=== PATIENT | female | born 1950 | race Caucasian/White ===

== ENCOUNTER → 2020-02-09 13:58 | Outpatient (CLI) | payer MEDICARE, SELFPAY ==
--- NOTE | ~2020-02-09 | CT_ITS ---
EXAMINATION: CT abdomen pelvis w con DATE: 02/09/2020 14:28 INDICATION: Lower abdominal pain. Irregular bowel movements. TECHNIQUE: Computed tomography (CT) of the abdomen and pelvis was performed without intravenous contr ast. The dose-length product was 620.22 mGy-cm. Automated exposure control and iterative reconstructi on technique were employed. COMPARISON: CT dated 01/10/2017 FINDINGS: Lung bases are unremarkable. Heart size is normal. No significant pleural or pericardial ef fusion. The liver, spleen, pancreas, adrenal glands and kidneys are unremarkable. Gallbladder is pres ent. Colonic diverticulosis without evidence for diverticulitis. No free air or free fluid. Mild lumb ar spondylosis. There is atherosclerosis. No lymphadenopathy. IMPRESSION: 1. No acute abdominal abnormality. Reviewed, dictated and finalized at location A. NG ANALYST
[2020-02-09 14:15] LABS: Estimated Glomerular Filt Rate > 60
== END ==
PROVIDERS: PCP Family Medicine; Visit Provider Physician Assistant
DX: R10.9 Unspecified abdominal pain (principal)
CPT/HCPCS: 74177; Q9967

== ENCOUNTER → 2020-07-29 01:34 | Outpatient (CLI) | payer MEDICARE, SELFPAY ==
[2020-07-29 19:38] LABS: SARS-CoV-2 RNA PCR Negative
== END ==
PROVIDERS: PCP Family Medicine; Visit Provider Internal Medicine Gastroenterology
DX: Z01.812 Encounter for preprocedural laboratory examination (principal); Z20.822 Contact with and (suspected) exposure to COVID-19
CPT/HCPCS: C9803; U0003; U0005

== ENCOUNTER 2020-08-01 00:56 | Day surgery (SDC) | payer MEDICARE, SELFPAY ==
[2020-07-21 13:30] VITALS: BMI 26.9
[2020-08-01 09:25] VITALS: BP 112/60; PULSE 71; RESP 20; TEMP 36.4; O2SAT 97; BMI 25.7
[2020-08-01] MEDS: LACTATED RINGERS 1,000 ML 150 ML IV CONT (09:47)
--- NOTE | 2020-08-01 10:20 | WPDHPUPDATE1 ---
History and Physical Update Update Date/Time: 08/01/20 10:20 History and Physical has been reviewed, including an updated exam of the patient. There are NO changes in the patient's condition. Risks, benefits, and alternatives have been discussed and questions answered. Patient agrees to proceed with procedure.
--- NOTE | 2020-08-01 10:23 | WPDANESEPPF ---
Anes - Initial Pre Proc Eval Procedure: Operation Date: 08/01/20 10:30 Proposed Procedures p Colonoscopy - Roc Gould MD Date/Time: 08/01/20 10:23 Surgeon: Roc Gould MD Pre Op Diagnosis: Rectal pain, abdominal pain Patient Data Age: 69 Gender: F Height: 5 ft 7 in Weight: 74.7 kg Last Vital Signs Temp 97.6 F 08/01/20 09:25 Pulse 71 08/01/20 09:25 Resp 20 08/01/20 09:25 BP 112/60 08/01/20 09:25 Pulse Ox 97 08/01/20 09:25 Allergies Allergy/AdvReac Type Severity Reaction Status Date / Time Sulfa (Sulfonamide Allergy Severe Swelling Verified 08/01/20 09:24 Antibiotics) Penicillins Allergy Mild Hives / Verified 08/01/20 09:24 Red Face Home Medications Medication Instructions Recorded Confirmed Type anastrozole 1 mg tablet 1 mg PO DAILY 02/22/19 07/21/20 History escitalopram oxalate 20 mg tablet 30 mg PO DAILY #135 tablet 05/26/20 07/21/20 Rx zolpidem 10 mg tablet 10 mg PO HS PRN tablet 06/14/20 07/21/20 History sodium,potassium,mag sulfates 17.5 See Rx Instructions PO .COMPLEX 07/19/20 Rx gram-3.13 gram-1.6 gram oral soln #354 ml naproxen sodium [Aleve] 220 mg PO PRN PRN 07/21/20 07/21/20 History Patient hx anesthesia problems: none Family hx anesthesia problems: none PMFSH Past Medical History Medical History Breast cancer Depression H/O benign essential tremor Family History Family History Sibling Acute myocardial infarction Social History Social History Smoking status: Never smoker Alcohol intake: current Substance use: never Living arrangements: with family Gender identity (if verbalized by the patient): Female Spiritual care concerns: No Anes - Eval Final PreProcedure Day of Procedure 08/01/20 10:23 Patient weight: normal Heart: regular rate and rhythm Lungs: clear to auscultation Airway: Mallampati scale class II Neurological: alert and oriented ASA classification: III Emergent: no Anesthetic plan: proceed Anesthesia type and monitoring: general GIVS and standard monitoring Informed Consent: The patient's anesthetic plan and its attendant risks and benefits were discussed with the patient/family/POA. Questions were solicited and answers provided to the satisfaction of the patient/family/POA.
[2020-08-01 10:45] VITALS: BP 88/45; PULSE 60; RESP 15; O2SAT 97
[2020-08-01 10:55] VITALS: BP 88/49; PULSE 60; RESP 26; O2SAT 100
[2020-08-01 11:05] VITALS: BP 93/41; PULSE 65; RESP 21; O2SAT 100
== END 2020-08-01 11:22 | disposition home or self-care (01) ==
PROVIDERS: PCP Family Medicine; Visit Provider Internal Medicine Gastroenterology
PROC: 0DJD8ZZ Inspection of Lower Intestinal Tract, Via Natural or Artificial Opening Endoscopic (ICD-10-PCS; CPT 45378; principal; 2020-08-01 10:30)
DX: R14.3 Flatulence (principal); K57.30 Diverticulosis of large intestine without perforation or abscess without bleeding; K62.89 Other specified diseases of anus and rectum; K64.8 Other hemorrhoids; Z85.3 Personal history of malignant neoplasm of breast; F32.9 Major depressive disorder, single episode, unspecified; R25.1 Tremor, unspecified; R10.9 Unspecified abdominal pain
CPT/HCPCS: 45378; C9803; J2704; J7120; U0003; U0005

== ENCOUNTER 2023-06-24 16:50 | Inpatient (IN) | payer MEDICARE, SELFPAY ==
[2023-06-24] VITALS (17 sets, daily range): BP systolic 91–122; BP diastolic 50–96; PULSE 53–90; RESP 16–25; TEMP 35.8–36.4; O2SAT 94–100; BMI 27.3
--- NOTE | ~2023-06-24 | XR_ITS ---
EXAMINATION: XR chest 1V portable Exam Date/Time: 06/24/2023 17:15 CDT HISTORY: post ROSC Comparison: None. RESULT: Lines, tubes, and devices: None. Lungs and pleura: Clear. Cardiomediastinal silhouette: Unremarkable. Other: No acute osseous or upper abdominal finding. IMPRESSION: No acute cardiopulmonary process. Reviewed, dictated and finalized at location K.
--- NOTE | 2023-06-24 16:58 | ECG_ITS ---
SEE SCANNED COPY FOR CONFIRMED REPORT MTDD
[2023-06-24] MEDS: AMIODARONE 150 MG/D5W 100 ML 150 MG/100 ML BAG 600 MG IV CONT (17:05)
--- NOTE | 2023-06-24 17:05 | PC.NURSE ---
Amiodarone continued, EMS initiated in field.
--- NOTE | 2023-06-24 17:08 | PC.NURSE ---
BS 188
[2023-06-24] MEDS: ONDANSETRON INJ 4 MG/2 ML VIAL IV PUSH (17:12)
--- NOTE | 2023-06-24 17:20 | ED.CPR ---
HPI - CPR General Chief Complaint: Cardiac Arrest/CPR Stated Complaint: post ROSC Time Seen by Provider: 06/24/23 16:57 Source: patient, family and EMS Mode of arrival: EMS Limitations: no limitations History of Present Illness HPI narrative: Patient presents via EMS. EMS had called and notified that they were en route with a patient with sinus bradycardia in the 30s that became junctional. They then updated report that patient had gone into cardiac arrest. Upon arrival to ED, patient is alert and oriented. They note that upon their arrival for a call for left shoulder pain, patient was pale and diaphoretic in the 40s and 50s and then in the 30s. She receive a 30mcg push dose of epinephrine. Upon cardiac arrest, chest compressions started and patient got 2 more doses of epinephrine. She had VFib and received 1 shock for this. She got amiodarone infusion and got ROSC. Upon arrival, alert and oriented though complaining of nausea and persistent shoulder pain. No history of hypertension or cholesterol. Related Data Home Medications Medication Instructions Recorded Confirmed omeprazole magnesium 20 mg 20 mg PO DAILY 03/05/21 06/24/23 tablet,delayed release (Prilosec OTC) tamoxifen 10 mg tablet 20 mg PO DAILY 11/06/22 06/24/23 ergocalciferol (vitamin D2) 1,250 1,250 mcg PO WEEKLY 05/07/23 06/24/23 mcg (50,000 unit) capsule desvenlafaxine succinate 75 mg PO DAILY 06/24/23 06/24/23 Allergies Allergy/AdvReac Type Severity Reaction Status Date / Time Sulfa (Sulfonamide Allergy Severe Swelling Verified 06/24/23 16:56 Antibiotics) Penicillins Allergy Mild Hives / Verified 06/24/23 16:56 Red Face PMFSH Past Medical History Medical History (Updated 06/24/23 @ 19:26 by Samantha Lang MD) Breast cancer Depression H/O benign essential tremor Family History Family History (Updated 06/24/23 @ 20:25 by Ibrahima Alonso RN) Sibling Acute myocardial infarction Father Alcoholism Mother Acute myocardial infarction Social History Social History Smoking status: Never smoker Alcohol intake: current Substance use: former Substance use type: does not use Do You Feel Safe in your Home?: Yes Lack of Transportation: No Lack of Food: Never True Current Housing: I Have Housing Concerned About Future Housing: No Difficulty Paying Gas/Electric Bills: No Difficulty Paying for Meds: No Currently Unemployed: No Education: Master's Degree or Higher Difficulty w/ Childcare or Family Care: No Living arrangements: with family Occupation/Education: retired Gender identity (if verbalized by the patient): Female Spiritual care concerns: Yes Exam Narrative: GENERAL: well-nourished, and in acute distress. HEAD: Normocephalic, atraumatic. EYES: Non injected, non icteric ENT: Nares clear, no rhinorrhea or epistaxis. NECK: Supple. CHEST: Speaking in full sentences. No respiratory distress. HEART: Regular rate and rhythm. ABDOMEN: Soft, nondistended.Emesis on shirt. EXTREMITIES: Normal range of motion. No edema. SKIN: Pale, mildly diaphoretic, no rash. NEURO: No focal deficits. Alert and oriented x3. PSYCH: Normal mood and affect. Course Vital Signs Vital signs: Vital Signs Temperature 96.5 F L 06/24/23 16:46 Pulse Rate 78 06/24/23 16:46 Respiratory Rate 19 06/24/23 16:46 Blood Pressure 103/67 06/24/23 16:46 Pulse Oximetry 100 06/24/23 16:46 Oxygen Delivery Room Air 06/24/23 16:46 Temperature 97.8 F 06/26/23 12:00 Pulse Rate 101 H 06/26/23 12:00 Respiratory Rate 19 06/26/23 12:00 Blood Pressure 113/91 H 06/26/23 12:00 Pulse Oximetry 100 06/26/23 12:00 Oxygen Delivery Room Air 06/26/23 12:00 MDM - Cardiac Arrest/CPR MDM Narrative Medical decision making narrative: Patient presents with report of acute left shoulder pain starting 2 hours before calling
--- NOTE | 2023-06-24 17:21 | ECG_ITS ---
SEE SCANNED COPY FOR CONFIRMED REPORT MTDD
[2023-06-24 17:23] LABS: Basophils Absolute Auto 0.1 K/mm3 (0.0-0.1); Basophils Percent Auto 0.7 % (0.2-1.2); Eosinophils Percent Auto 0.3 % (0-4.4); Hematocrit 35.6 % (37.0-47.0); Hemoglobin 12.3 g/dL (12.0-15.0); Immature Granulocyte Absolute 0.04 K/mm3 (0.00-0.031); Immature Granulocyte Percent A 0.3 % (0-0.5); Lymphocytes Absolute Auto 1.65 K/mm3 (0.9-3.2); Lymphocytes Percent Auto 14.4 % (18.3-44.2); Mean Corpuscular HGB Conc 34.6 g/dl (32-36); Mean Corpuscular Hemoglobin 31.6 pg (26-34); Mean Corpuscular Volume 91.5 fl (80-100); Mean Platelet Volume 8.6 fl (7.4-10.4); Monocytes Absolute Auto 0.7 K/mm3 (0.1-0.6); Monocytes Percent Auto 6.2 % (2.6-8.5); Neutrophils Absolute Auto 8.9 K/mm3 (1.3-6.7); Neutrophils Percent Auto 78.1 % (45.5-73.1); Platelet Count Result 206 k/mm3 (150-375); Red Blood Count 3.89 M/mm3 (4.2-5.4); Red Cell Distribution Width 14.3 % (11.5-14.5); White Blood Count 11.5 K/mm3 (4.5-10.0)
[2023-06-24] MEDS: MORPHINE SULFATE (*CRX) 2 MG/ML INJ 4 MG IV PUSH (17:25)
--- NOTE | 2023-06-24 17:27 | PCCCNOTE ---
Met with spouse and son in family room. ER provider explained to them what happened and that the plan is for a card cath to be performed this evening. They both voiced understanding and met with pt prior to being shown to the ICU waiting room. ICU staff informed family is in the waiting room to be informed of results of procedure and to see pt after. Family was informed of location of the cafeteria and vending machines.
[2023-06-24] MEDS: ASPIRIN 81 MG CHEWABLE TABLET 324 MG PO (17:32)
[2023-06-24] MEDS: SODIUM CHLORIDE 0.9% IV 1,000 ML 999 ML IV CONT (17:32)
[2023-06-24 17:33] LABS: Prothrombin Time 13.4 Seconds (11.1-14.7)
[2023-06-24] MEDS: HEPARIN SODIUM 5,000 UNITS/ML VIAL 4000 UNITS IV PUSH (17:33)
[2023-06-24 17:34] LABS: Partial Thromboplastin Time 21.1 Seconds (22.3-36.8)
--- NOTE | 2023-06-24 17:43 | PC.NURSE ---
1705 STEMI O/H 1706 DOUGIE SENT 1706 INTERVENTIONAL CARDIO NOTIFIED 1707 MILADY CALLED FOR STANDBY
[2023-06-24 18:00] LABS: Alanine Aminotransferase 22 U/L (6-35); Albumin Level 3.4 g/dL (3.5-5.1); Alkaline Phosphatase 112 U/L (38-126); Anion Gap 9 mmol/L (4-12); Aspartate Amino Transferase 33 U/L (14-36); Bilirubin,Total 0.4 mg/dL (0.2-1.3); Blood Urea Nitrogen 13 mg/dL (7-17); Calcium 7.9 mg/dL (8.4-10.2); Carbon Dioxide 17 mmol/L (22-30); Chloride 107 mmol/L (98-107); Cholesterol 201 mg/dL (0-200); Estimated CRCL calculation 75 ml/min; Estimated Glomerular Filt Rate > 60; Glucose 282 mg/dL (65-110); HDL Direct 67 mg/dL; Potassium 2.9 mmol/L (3.4-5.0); Sodium 133 mmol/L (137-145); Triglycerides 154 mg/dL (<150)
[2023-06-24 18:10] LABS: LDL Cholesterol Direct 126 mg/dL
[2023-06-24 18:24] LABS: Troponin I 0.258 ng/mL (0.000-0.034)
--- NOTE | 2023-06-24 19:03 | ECG_ITS ---
SEE SCANNED COPY FOR CONFIRMED REPORT. MTDD
--- NOTE | 2023-06-24 19:11 | WPDHPUPDATE1 ---
History and Physical Update Update Date/Time: 06/24/23 19:11 History and Physical has been reviewed, including an updated exam of the patient. There are NO changes in the patient's condition. Risks, benefits, and alternatives have been discussed and questions answered. Patient agrees to proceed with procedure.
--- NOTE | 2023-06-24 19:11 | PM.IMHP ---
H&P: HPI History of Present Illness Date/Time: 06/24/23 19:11 Chief Complaint: Left shoulder pain Narrative: this 72-year-old patient with past medical history of left breast cancer 8 years ago status post radiation but no chemo who presents to the hospital with left shoulder pain. Associated with nausea, vomiting. She felt sick and sweaty. Called EMS and apparently went into cardiac arrest. She developed bradycardia and then had to be shocked. She regained consciousness. On arrival to ED EKG shows ST depression in V1 to V3 consistent with posterior MD. she keeps having episodes of bradycardia. Review of Systems Review of Systems: All systems reviewed & are unremarkable except as noted in HPI and below Constitutional: Constitutional: Denies chills, Reports fatigue, Denies fever(s), Denies headache(s) and Denies snoring Comments: sweating Eyes: Eyes: Denies eye discharge and Denies loss of vision ENT: Denies dizziness, Denies headache(s), Denies nasal discharge and Denies sore throat Cardiovascular: Cardiovascular: Reports as per HPI, Denies chest pain, Denies syncope, Denies rapid heart rate, Denies leg edema, Denies dyspnea, Denies dyspnea on exertion, Denies orthopnea and Denies paroxysmal nocturnal dyspnea Respiratory: Respiratory: Denies chest congestion, Denies cough, Denies dyspnea, Denies dyspnea on exertion, Denies snoring and Denies wheezing Gastrointestinal: Gastrointestinal: Denies abdominal pain, Denies diarrhea, Reports nausea and Reports vomiting Genitourinary: Genitourinary: Denies hematuria, Denies urinary frequency, Denies dysuria and Denies flank pain Musculoskeletal: Musculoskeletal: Denies myalgias, Denies arthralgias and Denies joint swelling Comments: Left shoulder pain Neurologic: Denies Abnormal speech present, Denies dizziness, Denies syncope, Denies headache(s), Denies focal weakness and Denies loss of vision Psychiatric: Psychiatric: Denies anxiety and Denies depression Endocrine: Endocrine: Denies cold intolerance, Denies fatigue and Denies heat intolerance Hematologic/Lymphatic: Hematologic/Lymphatic: Denies easy bleeding and Denies easy bruising Allergic/Immunologic: Allergic/Immunologic: Denies urticaria and Denies wheezing PMFSH Past Medical History Medical History (Updated 06/24/23 @ 19:14 by Samantha Lang MD) Breast cancer Depression H/O benign essential tremor Family History Family History Sibling Acute myocardial infarction Social History Social History Smoking status: Never smoker Alcohol intake: current Substance use: never Lack of Transportation: No Lack of Food: Never True Current Housing: I Have Housing Concerned About Future Housing: No Difficulty Paying Gas/Electric Bills: No Difficulty Paying for Meds: No Currently Unemployed: No Education: Master's Degree or Higher Difficulty w/ Childcare or Family Care: No Living arrangements: with family Occupation/Education: retired Gender identity (if verbalized by the patient): Female Spiritual care concerns: No Meds Home Medications and Allergies Home Medications Medication Instructions Recorded Confirmed Type naproxen sodium 220 mg capsule 220 mg PO PRN PRN Pain 07/21/20 06/24/23 History (Aleve) omeprazole magnesium 20 mg 20 mg PO DAILY 03/05/21 06/24/23 History tablet,delayed release (Prilosec OTC) tamoxifen 10 mg tablet 20 mg PO DAILY 11/06/22 06/24/23 History ergocalciferol (vitamin D2) 1,250 1,250 mcg PO WEEKLY 05/07/23 06/24/23 History mcg (50,000 unit) capsule desvenlafaxine succinate 75 mg PO DAILY 06/24/23 06/24/23 History propranolol 40 mg tablet 40 mg PO Q12H 06/24/23 06/24/23 History zolpidem 10 mg tablet 15 mg PO QHS PRN insomnia #45 tabs 06/24/23 06/24/23 Rx Allergies Allergy/AdvReac Type Severity Reacti
--- NOTE | 2023-06-24 19:16 | WPDCARDPROC ---
Cardiac Cath Procedure Note Date of procedure:: 06/24/23 Performing physician:: Samantha Lang MD date of service June 24, 2023 Indication:: posterior STEMI Brief clinical history:: this 72-year-old patient with? past medical history of left breast cancer 8 years ago status post radiation but no chemo who presents to the hospital with left shoulder pain.? Associated with nausea, vomiting.? She felt sick and sweaty.? Called EMS and apparently went into cardiac arrest.? She developed bradycardia and then had to be shocked.? She regained consciousness.? On arrival to ED EKG shows ST depression in? V1 to V3 consistent with posterior AL. ?she keeps having episodes of bradycardia. Procedure Procedure performed:: 2-Selective left and right coronary angiogram. 3-Left heart catheterization with measurement of LVEDP and measurement of gradient across aortic valve. 4-Right common femoral arterial angiogram. 5- Penumbra thrombectomy of the left circumflex artery. 6- deployment of a drug-eluting stent orsiro 3x15 covering mid left circumflex artery. Proximal portion of the stent was dilated using 3.5 noncompliant balloon. 7- insertion of temporary transvenous pacemaker. 8- intravascular ultrasound of the left circumflex artery. Sedation/Medication given:: Moderate sedation. Access site:: Right common femoral artery. Estimated blood loss:: 10cc Procedure note:: After informed consent patient was brought in to [facility] with the was draped and prepped in usual manner. Moderate sedation was given and the right groin was infiltrated using 1% lidocaine. six Slovenian sheath was obtained using micropuncture needle and the modified Seldinger technique. Selective left coronary angiogram was done using JL4 catheter with the tip of the catheter placed in the left main coronary artery. Selective right coronary angiogram was done using JR4 catheter with the tip of the catheter placed to the right coronary artery. after that 6 Slovenian guide catheter CLS 3.5 was advanced and engaged the left main coronary artery. Coronary luge wire was advanced to the distal left circumflex artery. Penumbra thrombectomy catheter was used to retrieve the clot. After that we used 3 x 10 balloon and inflated it under normal pressure for 25 seconds. then after that we used intravascular ultrasound to measure the artery. Under deployed drug-eluting stent orsiro 3 x 15 covering mid left circumflex artery under nominal pressure for 30 seconds and then post dilated the proximal portion using 3.5 noncompliant balloon. After that 5 Slovenian pigtail catheter was advanced across the aortic valve into the left ventricle with measurement of LVEDP and measurement of gradient across aortic valve. Right common femoral arterial angiogram was done. 6 Slovenian right femoral vein was obtained using micropuncture needle modified Seldinger technique. Then temporary transvenous Pacemaker was advanced to the left ventricle was placed. Findings:: 1- left coronary artery is a large artery that divides into large LAD, large circumflex artery. Left main is Free of disease 2- left anterior descending artery is a large artery that runs and wraps around the apex. minimal irregularities. Proximal was ostial large diagonal branch that has ostial 20%. 3- leftcircumflex artery is a large artery Artery And codominant and in the mid segment there is ruptured a plaque with blood clot sitting. The blood clot also is in the ostial and proximal portion of a large OM1 that comes off just distal to the ruptured plaque. TRINA flow in the OM1 is 1 with clot distally. 4- right coronary artery is medium in caliber and codominant. No disease. 5- LVEDP was 13 mm Hg and no gradient across aortic valve. 6- opening arterial pressure was 88/47 and closing pressure was 105/34 7- right femoral artery angiogram shows no significant disease in the right common femoral artery. sheath entered the bifurcation 8- intravascular
[2023-06-24] MEDS: SODIUM CHLORIDE 0.9% IV 1,000 ML 125 ML IV CONT (21:01)
[2023-06-24 21:24] LABS: Anion Gap 8 mmol/L (4-12); Blood Urea Nitrogen 13 mg/dL (7-17); Calcium 7.8 mg/dL (8.4-10.2); Carbon Dioxide 18 mmol/L (22-30); Chloride 112 mmol/L (98-107); Estimated CRCL calculation 87 ml/min; Estimated Glomerular Filt Rate > 60; Glucose 205 mg/dL (65-110); Magnesium 1.7 mg/dL (1.6-2.3); Phosphorus 2.8 mg/dL (2.5-4.5); Potassium 3.1 mmol/L (3.4-5.0); Sodium 138 mmol/L (137-145)
[2023-06-24 21:37] LABS: Partial Thromboplastin Time 93.2 Seconds (22.3-36.8)
[2023-06-24] MEDS: MAGNESIUM SULF 2 GM/WATER 50ML 2 GM/50 ML BAG IVPB (22:47)
[2023-06-24] MEDS: POTASSIUM CHLORIDE INJ 40 MEQ in SODIUM CHLORIDE 0.9% IV 500 ML 130 MEQ IVPB (22:47)
[2023-06-25] VITALS (25 sets, daily range): BP systolic 93–127; BP diastolic 48–98; PULSE 62–108; RESP 13–21; TEMP 36.5–37.8; O2SAT 98–100
[2023-06-25] MEDS: ZOLPIDEM TARTRATE (*CRX) 5 MG TABLET 15 MG PO ×2 (01:01→20:29)
[2023-06-25 04:14] LABS: Hemoglobin 9.8 g/dL (12.0-15.0); Mean Corpuscular HGB Conc 33.8 g/dl (32-36); Mean Corpuscular Hemoglobin 31.6 pg (26-34); Mean Corpuscular Volume 93.5 fl (80-100); Mean Platelet Volume 8.8 fl (7.4-10.4); Platelet Count Result 163 k/mm3 (150-375); Red Cell Distribution Width 14.6 % (11.5-14.5)
[2023-06-25 04:26] LABS: Anion Gap 5 mmol/L (4-12); Blood Urea Nitrogen 14 mg/dL (7-17); Calcium 7.7 mg/dL (8.4-10.2); Carbon Dioxide 18 mmol/L (22-30); Chloride 115 mmol/L (98-107); Estimated CRCL calculation 78 ml/min; Estimated Glomerular Filt Rate > 60; Glucose 144 mg/dL (65-110); Potassium 4.7 mmol/L (3.4-5.0); Sodium 138 mmol/L (137-145)
[2023-06-25 04:35] LABS: Magnesium 2.4 mg/dL (1.6-2.3)
[2023-06-25] MEDS: ASPIRIN 81 MG CHEWABLE TABLET PO (08:02)
[2023-06-25] MEDS: TICAGRELOR 90 MG TABLET PO ×2 (08:02→20:28)
--- NOTE | 2023-06-25 09:10 | PM.PNCARD ---
Progress Note: A&P Assessment and Plan (1) STEMI (ST elevation myocardial infarction): Code(s): I21.3 - ST elevation (STEMI) myocardial infarction of unspecified site Status: Acute (2) Cardiac arrest: Code(s): I46.9 - Cardiac arrest, cause unspecified Status: Acute Plan 72-year-old lady with newly diagnosed coronary disease presenting with acute posterior infarction last evening. Underwent emergency PCI with thrombectomy and stenting of the circumflex. She has recovering satisfactorily overnight. Not requiring any pacing. Temporary transvenous pacemaker was removed at the bedside. Manual pressure for several minutes with the venous sheath there is no hematoma. We will initiate guideline directed medical therapy with statin, beta-moni and ARB at this time. Importance of strict adherence to dual anti-platelet therapy was discussed and stressed with the patient this morning. After her bed rest is completed she can moved to [facility] Micah Pabon MD [facility] Subjective Date/time seen: Date of service: 06/25/23 09:10 Interval history: Follow-up visit in this 72-year-old lady with: Newly diagnosed coronary artery disease presenting last night with acute posterior myocardial infarction complicated by VFib arrest in the emergency department. Patient underwent emergency thrombectomy and stenting of the circumflex with good anatomic result. Temporary pacemaker implanted following the procedure. She has intrinsic sinus rhythm in the 80s is not done any pacing through the night. Patient is in good spirits this morning and feels well. Exam Const: General: comfortable and no acute distress Other: Very pleasant well-developed well-nourished white female no distress of any kind still at bedrest with venous sheath in the right groin HENMT: Mouth: Yes moist mucous membranes Eyes: Sclera: sclerae normal Neck: Neck: supple and no JVD Resp: Effort & Inspection: normal respiratory effort Auscultation: clear to auscultation bilaterally Cardio: Rate: regular rate Rhythm: regular rhythm Other: No audible murmur or gallop GI: GI Palp: Yes Soft to palpation Auscultation: normal bowel sounds Urinary Catheter: Urinary Catheter: patent and draining Skin: General skin exam: normal color Neuro: Other: Alert and oriented x3 Extrem: Other: No edema, good distal pulses, no right groin hematoma. Objective Data Vital Signs Vital Signs: Vital Signs - 24 hr 06/24/23 16:46 06/24/23 17:05 06/24/23 17:08 Temperature 35.8 C L Pulse Rate 78 65 66 Pulse Rate [Right Pedal (Dorsalis Pedis) Palpation] Respiratory Rate 19 25 H Blood Pressure 103/67 103/67 103/67 Pulse Oximetry 100 100 Oxygen Delivery Room Air 06/24/23 17:09 06/24/23 17:13 06/24/23 17:14 Temperature Pulse Rate 65 67 Pulse Rate [Right Pedal (Dorsalis Pedis) Palpation] Respiratory Rate Blood Pressure 103/67 Pulse Oximetry 100 Oxygen Delivery Room Air 06/24/23 17:26 06/24/23 17:34 06/24/23 19:33 Temperature 36.4 C Pulse Rate 79 53 L 90 Pulse Rate [Right Pedal (Dorsalis Pedis) Palpation] Respiratory Rate 20 20 18 Blood Pressure 103/61 93/50 L 122/96 H Pulse Oximetry 97 98 100 Oxygen Delivery 06/24/23 19:33 06/24/23 19:48 06/24/23 20:00 Temperature 36.4 C Pulse Rate 53 L 88 88 Pulse Rate [Right Pedal (Dorsalis Pedis) Palpation] Respiratory Rate 20 Blood Pressure 93/50 L 91/55 L Pulse Oximetry 100 Oxygen Delivery 06/24/23 20:00 06/24/23 20:01 06/24/23 20:16 Temperature 36.4 C Pulse Rate 88 88 82 Pulse Rate [Right Pedal (Dorsalis Pedis) Palpation] Respiratory Rate 20 20 18 Blood Pressure 91/55 L Pulse Oximetry 100 100 100 Oxygen Delivery Room Air 06/24/23 20:46 06/24/23 21:00 06/24/23 22:00 Temperature Pulse Rate 84 90 77 Pulse Rate [Right Pedal (Dorsalis Pedis) Palpation] Respiratory Rate 24 H 18 16 Blood Pressure 98/
--- NOTE | 2023-06-25 09:23 | WPDCNINT ---
Assessment and Plan Assessment and plan (1) STEMI (ST elevation myocardial infarction): Code(s): I21.3 - ST elevation (STEMI) myocardial infarction of unspecified site Status: Acute Assessment and Plan: Patient presented the ED with diffuse old patient a nausea, vomiting diaphoresis. Had a brief cardiac arrest requiring defibrillation x1 in the field with return to consciousness. Patient was brought to the ED where she was found to have an acute posterior DC with bradycardic episodes. Patient was taken the photographic laboratory supervisor status post PTCA/PCI with CRISTINO x1 to mid left circumflex artery. LVEDP was 30 mmHg -patient was bradycardic during the case. Temporary pacemaker was inserted by Cardiology. At the end of the case the bradycardia had resolved -overnight patient did not require assistance of the temporary pacemaker, deferred was removed by Cardiology this morning on 06/25/2023. -patient started on aspirin, Brilinta, rosuvastatin, losartan and metoprolol -cardiology following the patient (2) Cardiac arrest: Code(s): I46.9 - Cardiac arrest, cause unspecified Status: Acute Assessment and Plan: Brief cardiac arrest likely related to ST-elevation DC/bradycardia, patient was shocked x1 with return of Puja consciousness. -arrhythmias noted overnight (3) Bradycardia: Code(s): R00.1 - Bradycardia, unspecified Status: Acute Assessment and Plan: As above Plan DVT prophylaxis: Status post cardiac catheterization Stress ulcer prophylaxis: Not indicated Nutrition: Heart healthy diet Code Status: Full code Critical Care Time Spent: 45 minutes Discussed with Cardiology, temporary pacemaker wires were removed patient will be transferred to intermediate Unit per Cardiology Due to a high probability of clinically significant, life threatening deterioration, the patient required my highest level of preparedness to intervene emergently and I personally spent this critical care time directly and personally managing the patient. This critical care time included obtaining a history; examining the patient; pulse oximetry; ordering and review of studies; arranging urgent treatment with development of a management plan; evaluation of patient's response to treatment; frequent reassessment; and discussions with other providers. It was exclusive of separately billable procedures and treating other patients and teaching time. Please see Assessment and Plan section and the rest of the note for further information on patient assessment and treatment This dictation may have been done utilizing a voice recognition system. Attempts have been made to correct errors. However, there may be uncorrected grammatical, spelling, and recognitions errors present. Creative Designer Consult Note Consult date: 06/25/23 Reason for consult: Cardiac arrest, STEMI, bradycardia HPI: Debi Breen is a 72 year old female with past medical history of left breast cancer 8 years ago status post radiation but no chemo, presented the ED on 06/24/2023 in the evening after she complained of left shoulder pain associated with nausea, vomiting, diaphoretic and feeling sick to the stomach. Apparently with the EMS arrive she went to a cardiac arrest, patient was cardioverted due to patient being bradycardic and irregular rhythm with hemodynamic instability patient regained consciousness and was transferred to the ED at [facility], EKG showed ST depression in V1 to V3 with posterior DC, patient was taken to the cardiac photographic laboratory supervisor emergently which she was found to have complete occlusion of the mid left circumflex status post PTCA/PCI with CRISTINO x1. LVEDP was 13 mmHg. Patient was also bradycardic in the photographic laboratory supervisor which had resolved at the end of the case by the weaving inspector placed a temporary pacemaker and patient was transferred to the ICU for further management. Patient seen examined the ICU this morning, is awake, alert, oriented, nonfocal. Patient a
[2023-06-25] MEDS: LOSARTAN POTASSIUM 25 MG TABLET PO (09:31)
[2023-06-25] MEDS: ROSUVASTATIN 20 MG TABLET PO (09:31)
[2023-06-25] MEDS: ACETAMINOPHEN 325 MG TABLET 650 MG PO ×2 (09:46→20:28)
[2023-06-26] VITALS (7 sets, daily range): BP systolic 104–123; BP diastolic 53–91; PULSE 79–103; RESP 16–19; TEMP 36.4–36.6; O2SAT 98–100
--- NOTE | 2023-06-26 | ECHO_ITS ---
Patient Info Name: Debi Breen Age: 72 years : 1950 Gender: Female Ht: 66 in Wt: 171 lbs BSA: 1.92 m2 HR: 79 bpm BP: 105 / 53 mmHg Heart Rhythm: Sinus Rhythm Technical Quality: Good Exam Date: 06/26/2023 11:11 AM Exam Location: Echo Lab Patient Status: Inpatient Admit Date: 06/24/2023 Staff Ordering Physician: Kirsten Lim MD (gildardo/carmen) Cube Machine Tender: Pina Navarro RDCS Attending Provider: Samantha Lang MD Referring Physician: Raphael TURPIN; Exam Type: CA echo dop color flow w con Study Info Indications - STEMI Complete two-dimensional, color flow and Doppler transthoracic echocardiogram is performed with contrast to opacify the left ventricle and to improve the deliniation of the left ventricle endocardial borders. Contrast/Agitated Saline Contrast/Ag. Saline: Definity Amount: 2.00 ml Administered By: Pina Navarro RDCS Existing IV Access: Yes IV Access Condition: patent with no signs of infiltration Summary 1. Left ventricular chamber dimension is normal. 2. Left ventricular systolic function is normal, estimated at 50-55%. 3. There is hypokinesis of the basal and mid anterolateral wall, basal and mid anterior wall, basal and mid inferolateral wall. 4. The left ventricular diastolic function is grade I diastolic dysfunction. 5. Right ventricular systolic function is normal. 6. There is mild mitral valve regurgitation. 7. There is mild tricuspid valve regurgitation. Left Ventricle There is hypokinesis of the basal and mid anterolateral wall, basal and mid anterior wall, basal and mid inferolateral wall. Left ventricular chamber dimension is normal. Left ventricular systolic function is normal, estimated at 50-55%. There is no increased left ventricular wall thickness. The left ventricular diastolic function is grade I diastolic dysfunction. Right Ventricle Right ventricular chamber dimension is normal. Right ventricular systolic function is normal. Left Atria Left atrial chamber dimension is normal. Right Atria Right atrial chamber dimension is normal. Atrial Septum Intact interatrial septum visualized by color flow imaging. Aortic Valve The aortic valve is trileaflet. There is mild aortic valve sclerosis. There is no aortic valve stenosis. There is no aortic valve regurgitation. Pulmonic Valve The pulmonic valve is not well visualized. Mitral Valve There is mild mitral valve regurgitation. Tricuspid Valve There is mild tricuspid valve regurgitation. Pericardium/Pleural There is no pericardial effusion. Inferior Vena Cava Normal inferior vena cava with >50% collapse upon inspiration consistent with normal right atrial pressure, 3 mmHg. Aorta The aortic root size at the sinus of Valsalva is normal. Left Ventricular Outflow Tract Name Value Normal LVOT 2D LVOT Diameter 1.88 cm LVOT Doppler LVOT Peak Gradient 5 mmHg LVOT Mean Gradient 2 mmHg LVOT VTI 20.40 cm LVOT VTI/AV VTI Ratio 0.75 LVOT Stroke Volume 56.31 ml LVOT CO
[2023-06-26] MEDS: METOPROLOL SUCCINATE EXT REL 25 MG TABCR PO (08:06)
[2023-06-26] MEDS: ASPIRIN 81 MG CHEWABLE TABLET PO (08:06)
[2023-06-26] MEDS: LOSARTAN POTASSIUM 25 MG TABLET PO (08:06)
[2023-06-26] MEDS: TICAGRELOR 90 MG TABLET PO (08:07)
[2023-06-26] MEDS: ROSUVASTATIN 20 MG TABLET PO (08:07)
[2023-06-26] MEDS: ACETAMINOPHEN 325 MG TABLET 650 MG PO (08:09)
[2023-06-26] MEDS: PERFLUTREN LIPID MICROSPHERES 1.5 ML VIAL DILUTED TO 10 ML TOTAL VOLUME IV PUSH (11:18)
--- NOTE | 2023-06-26 12:31 | IVDEFINITY ---
Prior to administration of IV Definity the patient was educated on the risks and benefits of the imaging enhancing agent including potential adverse side effects. The patient verbalized understanding. Allergies were verified. No exclusion criteria were identified and at least one of the following inclusion criteria were met: 1) physician request, 2) patient technically difficult to image (per the [place] [employer]chocardi[employer] guidelines of two or more segments not discernable within the apical view), or 3) questionable left ventricular function. ?
--- NOTE | 2023-06-26 13:25 | PM.DS ---
DS: Admitting Diagnosis Discharge Date 06/26/2023 Admitting Diagnosis STEMI DS: Discharge Diagnosis Discharge Diagnosis (1) STEMI (ST elevation myocardial infarction): Code(s): I21.3 - ST elevation (STEMI) myocardial infarction of unspecified site Status: Acute (2) Cardiac arrest: Code(s): I46.9 - Cardiac arrest, cause unspecified Status: Acute DS: Summary Hospital Course Reason for hospitalization: STEMI, cardiac arrest Hospital Course: This was a 72 year old female with?past medical history of left breast cancr 8 years ago status post radiation but no chemo who presented to the hospital with left shoulder pain.? Associated with nausea, vomiting.? She felt sick and sweaty.? Called EMS and apparently went into cardiac arrest.? She developed bradycardia and then had to be shocked.? She regained consciousness.? On arrival to ED, EKG showed ST depressions in?V1 to V3 consistent with posterior [place]. She kept having episodes of bradycardia. She underwent emergent cardiac catheterization which showed: In the mid segment of LCX there is ruptured plaque with blood clot sitting.? The blood clot also is in the ostial and proximal portion of a large OM1 that comes off just distal to the ruptured plaque.? TRINA flow in the OM1 is 1 with clot distally. Underwent successful stenting of mid left circumflex artery using 3mm x 15mm drug-eluting stent and post dilatation of the proximal portion of the stent to 3.5 mm. Temporary pacer was placed due to bradycardia. Post PCI, she did not have further issues with bradycardia, and the temp pacer was removed the next morning. She will be on DAPT, and guideline directed medical therapy with beta moni, ARB, statin. Echocardiogram showed preserved LVEF. Status at Discharge Cognitive/behavioral status at discharge: Stable Functional status at discharge: independent ambulation Overall status at discharge: patient is back to baseline Time Spent with Patient Time attestation: Total time spent providing and/or coordinating discharge services: Exam Const: General: comfortable and no acute distress HENMT: Mouth: Yes moist mucous membranes Eyes: General: appearance normal, both eyes and all related structures Sclera: sclerae normal Resp: Effort & Inspection: normal respiratory effort Cardio: Rate: regular rate Rhythm: regular rhythm Skin: General skin exam: normal color Psych: Mental Status: mental status grossly normal Affect: normal affect Discharge Plan Discharge Attending physician on discharge: Kirsten Lim Consulting providers: Mainor Moy Discharging Clinician: Kirsten Lim Anticipated Discharge Date/Time: 06/26/23 13:21 Patient Disposition: Home, Self-Care Activity: june shower Diet: heart healthy Discharge Instructions: STEMI Patient Instructions: Antibiotic Form, Ticagrelor (By mouth), Heart Attack (IP), Heart Healthy Diet (DC), Cardiac Rehabilitation (DC), Coronary Intravascular Stent Placement (DC), Left Heart Catheterization (DC) Stand Alone Forms: General Discharge Information Follow-up/Referrals: Samantha Lang MD [Physician] - Discharge Medications: New aspirin 81 mg capsule 81 mg PO DAILY@0800 Qty: 90 3RF losartan 25 mg Tablet 25 mg PO DAILY Qty: 90 3RF metoprolol succinate [Toprol XL] 25 mg Tablet Extended Release 24 Hr 25 mg PO QAM Qty: 90 3RF rosuvastatin 20 mg Tablet 20 mg PO QAM Qty: 90 3RF Brilinta 90 mg Tablet 90 mg PO Q12HR Qty: 180 3RF Continued omeprazole magnesium [Prilosec OTC] 20 mg tablet,delayed release (DR/EC) 20 mg PO DAILY ergocalciferol (vitamin D2) 1,250 mcg (50,000 unit) capsule 1,250 mcg PO WEEKLY Rx Instructions: Friday tamoxifen 10 mg tablet 20 mg PO DAILY desvenlafaxine succinate 75 mg PO DAILY zolpidem 10 mg tablet 15 mg PO QHS PRN (Reason: insomnia) Qty: 45 5RF Date of admission: 06/24/23 17:05
== END 2023-06-26 14:18 | disposition home or self-care (01) | DRG 321 ==
LOC: ANHED 17:00 → ANHICU 17:10
PROVIDERS: Internal Medicine; Admitting Provider Internal Medicine Cardiovascular Disease; Emergency Provider Student in an Organized Health Care Education/Training Program; PCP Family Medicine; Visit Provider Internal Medicine
PROC: 4A023N7 Measurement of Cardiac Sampling and Pressure, Left Heart, Percutaneous Approach (ICD-10-PCS; CPT 93452; principal; 2023-06-24 17:30)
PROC: 027034Z Dilation of Coronary Artery, One Artery with Drug-eluting Intraluminal Device, Percutaneous Approach (ICD-10-PCS; 2023-06-24 17:30)
PROC: 027034Z Dilation of Coronary Artery, One Artery with Drug-eluting Intraluminal Device, Percutaneous Approach (ICD-10-PCS; 2023-06-24 17:30)
PROC: 027034Z Dilation of Coronary Artery, One Artery with Drug-eluting Intraluminal Device, Percutaneous Approach (ICD-10-PCS; CPT 33210; 2023-06-24 17:30)
DX: I21.29 ST elevation (STEMI) myocardial infarction involving other sites (principal); I46.9 Cardiac arrest, cause unspecified; I25.10 Atherosclerotic heart disease of native coronary artery without angina pectoris; R00.1 Bradycardia, unspecified; G25.0 Essential tremor; F32.A Depression, unspecified; Z85.3 Personal history of malignant neoplasm of breast
CPT/HCPCS: 33210; 36415; 71045; 80048; 80053; 80061; 83735; 84100; 84484; 85025; 85027; 85610; 85730; 86850; 86900; 86901; 92950; 92978; 93005; 93458; 99285; A9270; C1725; C1753; C1757; C1769; C1874; C1887; C1894; C8929; C9606; J0282; J0461; J0583; J1327; J1644; J2270; J2305; J2405; J2550; J2765; J3475; J3480; J7030; J7040; Q9957

== ENCOUNTER 2023-07-22 08:56 | Outpatient (CLI) | payer MEDICARE, SELFPAY ==
[2023-07-22 11:14] LABS: Basophils Absolute Auto 0.1 K/mm3 (0.0-0.1); Basophils Percent Auto 0.9 % (0.2-1.2); Eosinophils Absolute Auto 0.1 K/mm3 (0-0.3); Eosinophils Percent Auto 2.2 % (0-4.4); Hematocrit 38.8 % (37.0-47.0); Hemoglobin 12.8 g/dL (12.0-15.0); Immature Granulocyte Absolute 0.02 K/mm3 (0.00-0.031); Immature Granulocyte Percent A 0.3 % (0-0.5); Lymphocytes Absolute Auto 1.18 K/mm3 (0.9-3.2); Lymphocytes Percent Auto 18.6 % (18.3-44.2); Mean Corpuscular Hemoglobin 31.7 pg (26-34); Monocytes Absolute Auto 0.6 K/mm3 (0.1-0.6); Monocytes Percent Auto 9.6 % (2.6-8.5); Neutrophils Absolute Auto 4.3 K/mm3 (1.3-6.7); Neutrophils Percent Auto 68.4 % (45.5-73.1); Platelet Count Result 197 k/mm3 (150-375); Red Blood Count 4.04 M/mm3 (4.2-5.4); Red Cell Distribution Width 15.4 % (11.5-14.5); White Blood Count 6.3 K/mm3 (4.5-10.0)
[2023-07-22 11:22] LABS: Alanine Aminotransferase 22 U/L (6-35); Albumin Level 3.8 g/dL (3.5-5.1); Alkaline Phosphatase 97 U/L (38-126); Anion Gap 5 mmol/L (4-12); Aspartate Amino Transferase 78 U/L (14-36); Bilirubin,Total 0.5 mg/dL (0.2-1.3); Blood Urea Nitrogen 12 mg/dL (7-17); Calcium 8.8 mg/dL (8.4-10.2); Carbon Dioxide 26 mmol/L (22-30); Chloride 107 mmol/L (98-107); Estimated Glomerular Filt Rate > 60; Glucose 109 mg/dL (65-110); Potassium 3.7 mmol/L (3.4-5.0); Sodium 138 mmol/L (137-145)
[2023-07-22 12:10] LABS: Hemoglobin A1C 4.4 % (<5.7)
== END 2023-07-22 08:57 | disposition home or self-care (01) ==
LOC: ANHGOSHLAB 08:57
PROVIDERS: PCP Family Medicine; Visit Provider Nurse Practitioner Family
DX: R00.1 Bradycardia, unspecified (principal); R73.01 Impaired fasting glucose; Z95.5 Presence of coronary angioplasty implant and graft
CPT/HCPCS: 36415; 80053; 83036; 85025

== ENCOUNTER 2023-09-13 13:07 | Emergency (ER) | payer MEDICARE, SELFPAY ==
[2023-09-13] VITALS (14 sets, daily range): BP systolic 116–142; BP diastolic 63–86; PULSE 70–93; RESP 14–22; TEMP 36.4; O2SAT 91–100
--- NOTE | ~2023-09-13 | XR_ITS ---
EXAMINATION: XR chest 2V 09/13/2023 13:35 INDICATION: Chest pain PROCEDURE: 2 view chest COMPARISON: 06/24/2023 FINDINGS: The lungs are clear. The lungs are hyperinflated which is consistent with, but not diagnost ic of chronic obstructive pulmonary disease. The cardiomediastinal silhouette is within normal limits . There are no pleural effusions. There is no pneumothorax suspected. IMPRESSION: 1: NO ACUTE CARDIOPULMONARY DISEASE. Reviewed, dictated and finalized at location B.
--- NOTE | 2023-09-13 13:07 | ECG_ITS ---
Test Date: 2023-09-13 13:13:40 Measurements Intervals Logan Rate: 82 P: 82 GA: 163 QRS: -17 QRSD: 78 T: 73 QT: 373 QTc: 436 Interpretive Statements SINUS RHYTHM CANNOT R/O SEPTAL INFARCT, AGE INDETERMINATE BASELINE WANDER- II, III, V5 ABNORMAL ECG No previous ECG available for comparison Electronically Signed On 09-13-2023 15:25:15 CDT by Bernardo Segovia D.O.
[2023-09-13 13:29] LABS: Basophils Percent Auto 0.5 % (0.2-1.2); Eosinophils Percent Auto 0.4 % (0-4.4); Hematocrit 38.7 % (37.0-47.0); Hemoglobin 12.9 g/dL (12.0-15.0); Immature Granulocyte Absolute 0.01 K/mm3 (0.00-0.031); Immature Granulocyte Percent A 0.2 % (0-0.5); Lymphocytes Absolute Auto 0.88 K/mm3 (0.9-3.2); Lymphocytes Percent Auto 15.6 % (18.3-44.2); Mean Corpuscular HGB Conc 33.3 g/dl (32-36); Mean Corpuscular Hemoglobin 30.6 pg (26-34); Mean Corpuscular Volume 91.7 fl (80-100); Mean Platelet Volume 8.9 fl (7.4-10.4); Monocytes Absolute Auto 0.4 K/mm3 (0.1-0.6); Monocytes Percent Auto 7.8 % (2.6-8.5); Neutrophils Absolute Auto 4.3 K/mm3 (1.3-6.7); Neutrophils Percent Auto 75.5 % (45.5-73.1); Platelet Count Result 195 k/mm3 (150-375); Red Blood Count 4.22 M/mm3 (4.2-5.4); Red Cell Distribution Width 14.6 % (11.5-14.5); White Blood Count 5.6 K/mm3 (4.5-10.0)
[2023-09-13 13:38] LABS: Alanine Aminotransferase 21 U/L (6-35); Albumin Level 4.1 g/dL (3.5-5.1); Alkaline Phosphatase 99 U/L (38-126); Anion Gap 9 mmol/L (4-12); Aspartate Amino Transferase 32 U/L (14-36); Bilirubin,Total 0.4 mg/dL (0.2-1.3); Blood Urea Nitrogen 16 mg/dL (7-17); Carbon Dioxide 25 mmol/L (22-30); Chloride 103 mmol/L (98-107); Estimated CRCL calculation 66 ml/min; Estimated Glomerular Filt Rate > 60; Glucose 127 mg/dL (65-110); Lipase 115 U/L (23-300); Potassium 3.6 mmol/L (3.4-5.0); Sodium 137 mmol/L (137-145)
[2023-09-13 13:41] LABS: INR 0.9; Partial Thromboplastin Time 23.2 Seconds (22.3-36.8)
[2023-09-13 13:49] LABS: Troponin I < 0.012 ng/mL (0.000-0.034)
--- NOTE | 2023-09-13 14:03 | ED.CHESTPAIN ---
HPI - Chest Pain General Chief Complaint: Chest Pain Stated Complaint: chest pain Time Seen by Provider: 09/13/23 13:53 Source: patient and family Mode of arrival: ambulatory Limitations: no limitations History of Present Illness HPI narrative: Patient presents with in his chest pain the past 2 days. Patient had cardiac arrest on 06/24/2023 with bronchoscopy and subsequent cardiac catheterization for which 1 stent was placed. Subsequent after discharge from the hospital she still with intermittent dizziness as well as hypotension. Her metoprolol and losartan were discontinued because of this (found to have SBP in the 70s at home). She would still experience intermittent dizziness with this reason Brilinta was discontinued and she was started on Plavix instead. Her dizziness persisted in for this reason her rosuvastatin was switched to atorvastatin and after this change was made her symptoms had improved. Chest pain given past several days described as throbbing, 8/10 in severity and maximum, currently 7/10 in severity. Symptoms occur intermittently radiate to jaw and on. She describes it as a throbbing and pressure. Not associated with shortness of breath, diaphoresis, nausea vomiting. No history of hypertension (antihypertensives had been for post-SC medical management). History of hyperlipidemia diagnosed at the time of arrest. Nonsmoker. No family history. No prior TIA or CVA. She does have a history of breast cancer. No history of diabetes mellitus. Family history is her brother had a myocardial infarction and her mother had a myocardial infarction though both were older than 65. Related Data Home Medications Medication Instructions Recorded Confirmed omeprazole magnesium 20 mg 20 mg PO DAILY 03/05/21 06/24/23 tablet,delayed release (Prilosec OTC) tamoxifen 10 mg tablet 20 mg PO DAILY 11/06/22 06/24/23 ergocalciferol (vitamin D2) 1,250 1,250 mcg PO WEEKLY 05/07/23 06/24/23 mcg (50,000 unit) capsule desvenlafaxine succinate 75 mg PO DAILY 06/24/23 06/24/23 Allergies Allergy/AdvReac Type Severity Reaction Status Date / Time Sulfa (Sulfonamide Allergy Severe Swelling Verified 09/13/23 13:51 Antibiotics) Penicillins Allergy Mild Hives / Verified 09/13/23 13:51 Red Face [facility] Past Medical History Medical History (Updated 09/14/23 @ 15:19 by Fouzia Benjamin MD) Breast cancer Cardiac arrest 06/24/23 Depression H/O benign essential tremor Signs of return of spontaneous circulation 06/24/23 Surgical History Surgical History (Updated 09/14/23 @ 15:20 by Fouzia Benjamin MD) H/O heart artery stent 06/24/23; Dr Lang Family History Family History Sibling Acute myocardial infarction, Onset Age: 69 Father Alcoholism Mother Acute myocardial infarction, Onset Age: 88 Cerebrovascular accident Social History Social History Smoking status: Never smoker Alcohol intake: current Substance use: former Substance use type: does not use Do You Feel Safe in your Home?: Yes Lack of Transportation: No Lack of Food: Never True Current Housing: I Have Housing Concerned About Future Housing: No Difficulty Paying Gas/Electric Bills: No Difficulty Paying for Meds: No Currently Unemployed: No Education: Master's Degree or Higher Difficulty w/ Childcare or Family Care: No Living arrangements: with family Occupation/Education: retired Gender identity (if verbalized by the patient): Female Spiritual care concerns: Yes Exam Narrative: GENERAL: Well-appearing, well-nourished, and in no acute distress. HEAD: Normocephalic, atraumatic. EYES: Non injected, non icteric ENT: Nares clear, no rhinorrhea or epistaxis. NECK: Supple. CHEST: Speaking in full sentences. No respiratory distress. HEART: Regular rate and rhythm. . ABDOMEN:
[2023-09-13 14:55] LABS: Magnesium 1.9 mg/dL (1.6-2.3)
== END 2023-09-13 15:57 | disposition home or self-care (01) ==
PROVIDERS: Emergency Medicine; Emergency Provider Student in an Organized Health Care Education/Training Program; PCP Family Medicine
DX: R07.9 Chest pain, unspecified (principal); Z95.5 Presence of coronary angioplasty implant and graft; E78.5 Hyperlipidemia, unspecified; I25.2 Old myocardial infarction; Z85.3 Personal history of malignant neoplasm of breast
CPT/HCPCS: 36415; 71046; 80053; 83690; 83735; 84484; 85025; 85610; 85730; 93005; 99284

== ENCOUNTER 2023-11-03 12:30 | Outpatient (RCR) | payer MEDICARE, SELFPAY ==
[2023-08-08 15:41] VITALS: PULSE 76
== END 2023-11-03 14:22 | disposition home or self-care (01) ==
LOC: ANHCPREHAB 12:30
PROVIDERS: PCP Family Medicine; Visit Provider Internal Medicine Cardiovascular Disease
DX: Z95.5 Presence of coronary angioplasty implant and graft (principal)
CPT/HCPCS: 93798

== ENCOUNTER 2023-12-04 19:27 | Outpatient (NON) | payer MEDICARE, SELFPAY | END 2023-12-04 19:28 | disposition home or self-care (01) | PROVIDERS: PCP Family Medicine; Referring Provider Student in an Organized Health Care Education/Training Program; Visit Provider Student in an Organized Health Care Education/Training Program | DX: R39.9 Unspecified symptoms and signs involving the genitourinary system (principal) | CPT/HCPCS: 87086 ==

== ENCOUNTER 2024-07-04 14:04 | Emergency (ER) | payer MEDICARE, SELFPAY ==
[2024-07-04 14:20] VITALS: BP 130/82; PULSE 68; RESP 18; TEMP 36.4; O2SAT 100
--- NOTE | 2024-07-04 15:07 | ED.FEMALEGU ---
HPI - Female Genitourinary General Chief complaint: Urogenital-Female Stated complaint: Urinary Problems Time Seen by Provider: 07/04/24 14:25 Source: patient Mode of arrival: ambulatory Limitations: no limitations History of Present Illness HPI Narrative: Laureen is a 73-year-old female patient presenting to the clinic today with complaints of a possible UTI. She reports last night she developed pain with urination and noticed some blood in her urine. She denies any back pain, abdominal pain, fevers, nausea, or vomiting. Related Data Home Medications ?Medication ?Instructions ?Recorded ?Confirmed ?Last Taken ?Type desvenlafaxine succinate 50 mg mg PO 09/26/23 06/18/24 Unknown History tablet,extended release 24 hr desvenlafaxine succinate 25 mg mg PO 05/21/24 06/18/24 Unknown History tablet,extended release 24 hr ergocalciferol (vitamin D2) 1,250 50,000 unit PO 06/18/24 06/18/24 Unknown History mcg (50,000 unit) capsule omeprazole 20 mg capsule,delayed 20 mg PO DAILY 06/18/24 06/18/24 Unknown History release aspirin 81 mg tablet,delayed mg 07/04/24 Unknown History release pravastatin 40 mg tablet mg 07/04/24 Unknown History ticagrelor 90 mg tablet (Brilinta) mg 07/04/24 Unknown History Allergies Allergy/AdvReac Type Severity Reaction Status Date / Time Sulfa (Sulfonamide Allergy Severe Swelling Verified 07/04/24 14:22 Antibiotics) Penicillins Allergy Mild Hives / Verified 07/04/24 14:22 Red Face Review of Systems Review of Systems: Pertinent positives per HPI. Patient denies any fever, chills, rash, headache, visual changes, dizziness, cough, runny nose, sore throat, shortness of breath, chest pain, palpitations, nausea, vomiting, diarrhea, constipation, abdominal pain. [facility] Past Medical History Medical History Signs of return of spontaneous circulation 06/24/23 Cardiac arrest 06/24/23 Depression Breast cancer H/O benign essential tremor Surgical History Surgical History H/O heart artery stent 06/24/23; Dr Lang Family History Family History Sibling Acute myocardial infarction, Onset Age: 69 Father Alcoholism Mother Acute myocardial infarction, Onset Age: 88 Cerebrovascular accident Social History Social History Smoking status: Never smoker Alcohol intake: current Substance use: former Substance use type: does not use Do You Feel Safe in your Home?: Yes Lack of Transportation: No Lack of Food: Never True Current Housing: I Have Housing Concerned About Future Housing: No Difficulty Paying Gas/Electric Bills: No Difficulty Paying for Meds: No Currently Unemployed: No Education: Master's Degree or Higher Difficulty w/ Childcare or Family Care: No Living arrangements: with family Occupation/Education: retired Gender identity (if verbalized by the patient): Female Spiritual care concerns: Yes Comments At the time of my signature, I reviewed and agree with the nursing past medical, surgical, social, and family history. There is no relevant family history pertinent to the patient complaint. Exam Narrative: General: Well-developed, well nourished, in no apparent distress. Head: Normocephalic, atraumatic. Cardio: Regular rate and rhythm, s1 and s2 normal, no murmur appreciated. Resp: Clear to auscultation bilaterally, no rhonchi, rales, wheezing or rubs. Abdomen: Soft, pliable, bowel sounds present in all quadrants, non-tender to palpation, no organomegly, no CVAT tenderness. Course Course Emergency Course: Portions of this record may have been created with voice recognition software. Level of Care: Express Care Visit Vital Signs Vital signs: Vital Signs Temperature 36.4 C 07/04/24 14:20 Pulse Rate 68 07/04/24 14:20 Respiratory Rate 18 07/04/24 14:20 Blood Pressure 130/82 07/04/24 14:20 Pulse Oximetry 100 07/04/24 14:20 Oxygen Delivery Room Air 07/04/24 14:20 Temperature 36.4 C 07/04/24 14:20 Pulse Rate 68 07/04/24 14:20 Respiratory Rate 18 07/04/24 14:20 Blood Pressure 130/82 07/04/24 14:20 Pulse Oximetry 100 07/04/24 14:20 Oxygen Delivery Room Air 07/04/24 14:20 Vital signs reviewed MDM - Female Genitourinary MDM Narrative Medical decision making narrative: At the time of visit patient is resting comfortably on the exam table. Patient appears to be nontoxic. Labs: Urinalysis positive for leukocytes, protein, and blood. We will send urine for culture. Plan: I suspect patient has urinary tract infection. Patient has allergies to penicillins and sulfa antibiotics. Prescription for ciprofloxacin was sent to the pharmacy. Supportive measures were discussed with the patient and they voiced understanding discharge instructions and agrees to treatment plan. Return precautions reviewed Differential Diagnosis Differential diagnosis: Likely urinary tract infection, cystitis and other (Overactive bladder syndrome, pyelonephritis) Lab Data Labs: Lab Results 07/04/24 Range/Units 15:07 POC Urine Color Pending POC Urine Clarity Pending POC Urine pH Pending POC Ur Specif Campus Pending POC Urine Protein Pending POC Ur Glucose (UA) Pending POC Urine Ketones Pending POC Urine Blood Pending POC Urine Nitrite Pending POC Urine Bilirubin Pending POC Urine Urobilinogen Pending POC U Leukocyte Esteras Pending Discharge Plan Discharge Clinical Impression: Urinary tract infection Qualifiers: Urinary tract infection type: acute cystitis Hematuria presence: with hematuria Qualified Code(s): N30.01 - Acute cystitis with hematuria Patient Disposition: Home Condition: Stable Instructions: Antibiotic Form, Urinary Tract Infection in Women (ED) Additional Instructions: Urinalysis positive for leukocytes, protein, and blood. We will send urine for culture. Take ciprofloxacin as prescribed Increase fluids and stay well hydrated Wipe front to back. May use wet wipes. Avoid tub baths If sexually active- pee before and after intercourse. Wear cotton panties Avoid tight clothing up against the genitals Follow up with your PCP in 1 week if symptoms persist. Patient Language: Citizen Of [place] Prescriptions: New ciprofloxacin HCl [Cipro] 500 mg tablet 500 mg PO Q12H 7 Days Qty: 14 0RF No Action pravastatin 40 mg tablet aspirin 81 mg tablet,delayed release (DR/EC) ticagrelor [Brilinta] 90 mg tablet desvenlafaxine succinate 50 mg tablet extended release 24 hr PO desvenlafaxine succinate 25 mg tablet extended release 24 hr PO zolpidem 10 mg tablet 15 mg PO QHS PRN (Reason: insomnia) Qty: 45 5RF ergocalciferol (vitamin D2) 1,250 mcg (50,000 unit) capsule 50,000 unit PO omeprazole 20 mg capsule,delayed release(DR/EC) 20 mg PO DAILY aspirin 81 mg capsule 81 mg PO DAILY@0800 Qty: 90 3RF diazepam [Valium] 2 mg tablet 2 mg PO BID PRN (Reason: muscle spasm) Qty: 14 0RF Follow-up/Referrals: Micah Fournier MD [Primary Care Provider] - Time of Disposition: 15:09 Quality NIHSS Nursing Documentation ED NIHSS nursing documentation: reviewed/agree
[2024-07-04 15:10] LABS: EDUAAPPEAR Cloudy; EDUABILI Negative (Negative); EDUABLOOD 2+ (Negative); EDUACOLOR1 Yellow; EDUAGLUCOSE Negative (Negative); EDUAKETONE Negative (Negative); EDUALEUKO Trace (Negative); EDUANITRATE Negative (Negative); EDUAPH 6.5; EDUAPROTEIN 1+ (Negative); EDUAUROBILI 0.2
== END 2024-07-04 15:12 | disposition home or self-care (01) ==
PROVIDERS: Emergency Provider Nurse Practitioner Family; PCP Family Medicine
DX: N30.01 Acute cystitis with hematuria (principal); F32.A Depression, unspecified; Z86.74 Personal history of sudden cardiac arrest; Z85.3 Personal history of malignant neoplasm of breast; Z95.5 Presence of coronary angioplasty implant and graft
CPT/HCPCS: 81003; 87086; 87186; 99213; G0463

== ENCOUNTER 2024-07-13 13:38 | Outpatient (NON) | payer MEDICARE, SELFPAY ==
--- OUTSIDE RECORDS SUMMARY | 2024-07-13 13:43 | XMS_ITS | Encounter Summary ---
Author Organization [facility] Healthcare Address [address] [place] [address] Care Team Providers Care Strip Catcher Name Role Phone Micah Fournier MD Primary Care Provider [phone] Zoran Haile MD Unavailable Ivan Johnson MD Unavailable [phone] Nancy Hernandez PhD Unavailable [phone] Frances Chamberlain BATTERY CONTAINER INSPECTOR Unavailable [phone] Encounter Details Date Type Department Care Team (Late st Contact Info) Description 07/22/[address] [facility] Health Information Management [address] [place] [id number] Scanning, Provider Social History Tobacco Use Types Packs/Day Years Used Date Smoking Tobacco: Never Smokeless Tobacco: Never Alcohol Use Standard Drinks/Week Comments Never 0 (1 standard drink = 0.6 oz pur e alcohol) AUDIT-C Answer Date Recorded Frequency of Alcohol Consumption Never 05/14/2018 Average Number of Drinks Not on file 019 Frequency of Binge Drinking Not on file 04/25 Comments No Sex and Gender Information Value Date Recorded Sex Assigned at Not on file Legal Sex Female 2:57 AM LOW ALTITUDE AIR DEFENSE OFFICER Gender Identity Female 08/14/2020 2:05 PM CDT Sexual Orientation Straight 09/23/2018 1: 33 PM CDT documented as of this encounter Plan of Treatment Not on file documented as of this encounter Procedures Procedure Name Priority Date/Time Associated Diagnosis Comments SCAN - LABS 07/22/2023 documented in this encounter Results * SCAN - LABS (07/22/2023) us Provider Scanning Final Result documented in this encounter Visit Diagnoses Not on filedocumented in this encounter Care Teams Strip Catcher Relationship Specialty Start Date End Date Micah Fournier MD PCP - General 07/17/17 Zoran Haile MD [address] [place] [address] Radiation Oncologist Radiation Oncology 09/21/18 Ivan Johnson MD [address] [place] [address] Surgeon Surgical Oncology 09/21/18 Nancy Hernandez, PhD [address] [place] [address] Nurse Practitioner Radiation Oncology 09/21/18 Frances Chamberlain, BATTERY CONTAINER INSPECTOR [address] [place] [address] Nurse Practitioner Medical Oncology 09/21/18 documented as of this encounter
--- OUTSIDE RECORDS SUMMARY | 2024-07-13 13:43 | XMS_ITS | Referral Summary ---
Author Organization [facility] Address [address] [place] [address] Care Team Providers Care Bobtail Driver Name Role Phone Micah Fournier MD Primary Care Provider [phone] Zoran Haile MD Unavailable Ivan Johnson MD Unavailable [phone] Nancy Hernandez PhD Unavailable [phone] Frances Chamberlain NP Unavailable Encounters Date Type Department Care Team Description 05/24/2024 Orders Only [facility] [address] [facility] Advanced Medicine 5th [place] [address] [place] [id number] Kaushik Lewis NP Age-related osteoporosis without current pathological fracture (Primary Dx); Elevated alkaline phosphatase level 05/17/2024 Results Follow-Up [facility] [address] [facility] Medical Office Building [address] [place] [address] Selwyn Do MD Vitamin D 25 hydroxy, PTH, Comprehensive metabolic panel 05/10/2024 11:30 AM CDT Office Visit [facility] [address] [place] [address] Samantha Lang MD Coronary artery disease involving douglas coronary artery of douglas heart without angina pectoris (Primary Dx); Dyslipidemia; Myalgia 05/04/2024 4:25 PM CDT Lab [facility] [address] [facility] 5th [place] [address] [place] [address] Age-related osteoporosis without current pathological fracture 05/04/[address] [facility] [address] [facility] Medical Office [address] [place] [phone] Selwyn Do MD 05/04/2024 2:40 PM CDT Office Visit [address] 5th [place] [address] [place] [address] Selwyn Do MD Age-related osteoporosis without current pathological fracture (Primary Dx) 05/04/2024 2:10 PM CDT Clinical Support [address] 5th [place] [address] [place] [phone] Age-related osteoporosis without current pathological fracture (Primary Dx) from Last 3 Months Allergies Active Allergy Reactions Criticality Noted Date Comments Penicillins Other (See comments) Low 10/28/2012 Reaction: Sulfa (Sulfonamide Antibiotics) Rash,Other (See comments) Medium 10/28/2012 Reaction: Medications zolpidem (AMBIEN) 10 mg tablet 5 1 Active omeprazole (PriLOSEC) 10 mg capsule Take 1 capsule (10 mg total) by mouth daily Active multivitamin capsule Take 1 capsule by mouth daily Active desvenlafaxine ER (PRISTIQ) 50 mg 24 hr tablet 75 mg PRISTIQ 3 Active atorvastatin (LIPITOR) 10 mg tabletIndicatio ns:Dyslipidemia Take 0.5 tablets (5 mg total) by mouth daily 45 tablet 3 5 03/12/19 26 Active Additional Information Patient not taking.Reported on 05/10/2024 aspirin 81 mg enteric coated tablet TAKE 1 TABLET BY MOUTH EVERY DAY AT 0800 90 tablet 3 5 Active pravastatin (PRAVACHOL) 40 mg tablet Take 1 tablet (40 mg total) by mouth daily Active omeprazole OTC (PriLOSEC OTC) 20 mg EC tablet Take 1 tablet (20 mg total) by mouth daily Active ergocalciferol (VITAMIN D) 50,000 unit capsule Take 1 capsule (50,000 Units total) by mouth once a week Take 1 capsule every 7 days 12 capsule 5 05/25/19 26 Active Active Problems Problem Noted Date Diagnosed Date Myalgia 11/10/2023 Coronary artery disease invo lving douglas coronary artery of douglas heart without angina pectoris 08/07/2023 Dizziness 08/07/2023 Dyslipidemia 08/07/2023 Age-related osteoporosis wit hout current pathological fracture 04/25/2022 Long-term current use of tamoxifen 12/05/2021 Other osteoporosis without current pathological fracture 10/04/2021 History of breast cancer 08/02/2019 Encounter for screening for malignant neoplasm o f breast 09/10/2018 Malignant neoplasm of upper- outer quadrant of right breast in female, estrogen receptor positive 07/18/2017 Cancer Staging:Clinical stage from 03/30/2015:Stage IB(cT2, cN0, cM0, G1, ER+, PA+, HER2-) - Signed by Nancy Hernandez, PhD on 09/21/2018 Pathologic stage from 08/01/2015:No Stage Recommended(ypT2, pN0(sn), cM0, G1, ER+, PA+, HER2-) - Signed by Nancy Hernandez, PhD on 09/21/2018 Resolved Problems Problem Noted Date Diagnosed Date Resolved Date Encounter for follow-up [facility] of breast cancer 05/14/2018 09/10/2019 Immunizations Immunization Administration Dates Next Due Influenza, Quadrivalent, Hig h Dose, Preservative Free, Intrr 12/08/2019,11/30/2019 Influenza, Trivalent, High D ose, Split, Preservative Free, Intramuscular 11/20/2018,12/31/2017 Influenza, Unspecified 01/28/2003,01/20/2001 Pfizer SARS-CoV-2 Monovalent Vaccination (12+ Yrs) PURPLE 05/11/2020,04/20/2020 Pneumococcal Polysaccharide PPV23 02/22/2019 Social History Tobacco Use Types Packs/Day Years Used Date Smoking Tobacco: Never Smokeless Tobacco: Never Tobacco Cessation:Counseling Given: Not Answered Alcohol Use Standard Drinks/Week Comments Never 0 (1 standard drink = 0.6 oz pur e alcohol) AUDIT-C Answer Date Recorded Frequency of Alcohol Consumption Never 05/14/2018 Average Number of Drinks Not on file 019 Frequency of Binge Drinking Not on file 04/25 Comments No Sex and Gender Information Value Date Recorded Sex Assigned at Not on file Legal Sex Female 2:57 AM BIRTH CERTIFICATE CLERK Gender Identity Female 08/14/2020 2:05 PM CDT Sexual Orientation Straight 09/23/2018 1: 33 PM CDT Last Filed Vital Signs Vital Sign Reading Time Taken Comments Blood Pressure 100/62 05/10/2024 11:25 AM CDT Pulse 87 05/10/2024 11:25 AM CDT Temperature 36.4 C (97.5 F) 12/10/2023 1:14 PM CDT Respiratory Rate 16 12/10/2023 1:14 PM CDT Oxygen Saturation 98% 05/10/2024 11:25 AM CDT Inhaled Oxygen Concentration - - Weight 70.8 kg (156 lb) 05/10/2024 11:25 AM CDT Height 167.6 cm (5' 6 ) 05/10/2024 11:25 AM CDT Body Mass Index 25.18 05/10/2024 11:25 AM CDT Plan of Treatment Not on file Procedures Procedure Name Priority Date/Time Associated Diagnosis Comments POCT LIPID PANEL Routine 05/10/2024 11:2 0 AM CDT Coronary artery disease involving douglas coronary artery of douglas heart without angina pectoris Dyslipidemia COMPREHENSIVE METABOLIC PANEL Routine 05/04/2024 4:04 PM CDT Age-related osteoporosis without current pathological fracture PTH Routine 05/04/2024 4:04 PM CDT Age-related osteoporosis without current pathological fracture VITAMIN D 25 HYDROXY Routine 05/04/2024 4:04 PM CDT Age-related osteoporosis without current pathological fracture DEXA TBS AXIAL SKELETON BONE DENSITY 1 OR MORE SITES Schedule Routine, Read Routine (OP Routine) 05/04/2024 2:28 PM CDT Age-related osteoporosis without current pathological fracture DIAGNOSTIC MAMMOGRAM BILATERAL W DANELLE Schedule Routine, Read Routine (OP Routine) 12/29/2023 2:16 PM BIRTH CERTIFICATE CLERK Malignant neoplasm of upper-outer quadrant of right breast in female, estrogen receptor positive (HCC) Abnormal mammogram of both breasts from Last 3 Months or Most Recently Relevant to Health Maintenance Results * POCT lipid panel (05/10/2024 11:20 AM CDT) HDL, POC 92 mg/dL Triglycerides, POC 158 mg/dL LDL Cholesterol POC 67 mg/dL Chol/HDL Ratio, POC 0.7 Non-HDL Cholesterol, POC 98 mg/dL Cholesterol Total, POC 190 mg/dL Capillary blood 05/10/2024 1 1:20 AM CDT us Samantha Lang MD POINT OF CARE TEST O RDERABLES Final Result * Vitamin D 25 hydroxy (05/04/2024 4:04 PM CDT) Vitamin D 31.5 20.0 - 100.0 ng/mL [facility] Comment: VITAMIN D DEFICIENCY = LESS THAN or EQUAL TO 20 ng/mL VITAMIN D INSUFFICIENCY = 21 - 29 ng/mL VITAMIN D SUFFICIENT = 30-100 ng/mL Blood 05/04/2024 4:04 PM CDT 05/04/2024 4:19 PM CDT Selwyn Do MD LAB BLOOD ORDERABLES Final Resu lt [facility] * (ABNORMAL) PTH (05/04/2024 4:04 PM CDT) Parathyroid Hormone 75.7(H) 15.0 - 65.0 pg/mL [facility] Blood 05/04/2024 4:04 PM CDT 05/04/2024 4:19 PM CDT us Selwyn Do MD LAB BLOOD ORDERABLES Final Resu lt [facility] * (ABNORMAL) Comprehensive metabolic panel (05/04/2024 4:04 PM CDT) Total Protein 6.7 6.1 - 8.4 g/dL [facility] Albumin 4.1 3.5 - 5.2 g/dL [facility] Calcium 9.4 8.6 - 10.3 mg/dL [facility] BUN 16 7 - 23 mg/dL [facility] Total Bilirubin 0.25 0.20 - 1.40 mg/dL [facility] Alk Phos, Total 150(H) 35 - 129 IU/L [facility] AST (SGOT) 17 11 - 47 IU/L [facility] ALT (SGPT) 13 6 - 53 IU/L [facility] Creatinine 0.65 0.60 - 1.10 mg/dL [facility] Sodium 138 135 - 145 mmol/L [facility] Potassium 4.2 3.3 - 5.1 mmol/L [facility] Chloride 102 95 - 107 mmol/L [facility] CO2 Content 27 21 - 29 mmol/L [facility] Glucose 104(H) 64 - 99 mg/dL [facility] Comment: NONFASTING GLUCOSE RANGE = 64-199 mg/dL FASTING GLUCOSE 64 - 99 = NORMAL FASTING GLUCOSE 100 - 125 = IMPAIRED FASTING GLUCOSE FASTING GLUCOSE >=126 = PROVISIONAL DIAGNOSIS OF DIABETES eGFR >90.0 >60.0 mL/min/1.7 3 m2 [facility] Blood 05/04/2024 4:04 PM CDT 05/04/2024 4:19 PM CDT us Selwyn Do MD LAB BLOOD ORDERABLES Final Resu lt [facility] * Dexa TBS Axial Skeleton Bone Density 1 or more sites (05/04/2024 2:28 PM CDT) Anatomical Region Laterality Modality Wrist, Body N/A Radiographic Cherry ging Narrative 05/06/2024 12:19 PM CDT Patient Name: Laureen Breen Date of : 1950 Date of scan: 05/04/2024 Bone mineral density was performed on a [employer] Discovery Densitometer. Based on machine cross-calibration and precision studies the least significant changes of this densitometer is 0.024 g/cm2 at the spine, 0.020 g/cm2 at the total proximal femur, and 0.014g/cm2 at the forearm. HISTORY: This is a 73 y.o. postmenopausal female with a history of breast cancer, osteoporosis, and vitamin D deficiency. She reports that she has never smoked. She has never used smokeless tobacco. Previously treated with tamoxifen and aromatase inhibitor and current complaint of arm pain and leg pain. INDICATIONS: Menopause status, vitamin D deficiency, and history of osteoporosis. FINDINGS: BONE MINERAL DENSITY OF THE LUMBAR SPINE Bone Mineral Density (BMD) of the lumbar spine was measured from L1-L4 and the average density was calculated to be 1.022 gm/cm2. This corresponds to a T-score (standard deviations from the mean of young adults) of -0.2. When compared to the previous study of 04/29/2023 there has been no significant changes in bone density. BONE MINERAL DENSITY OF THE PROXIMAL FEMUR Bone Mineral Density (BMD) of the left hip total was found to be 0.693 gm/cm2. This corresponds to a T-score standard deviations from the mean of young adults of -2.0. Femoral neck is 0.547 gm/cm2 with a T-score (standard deviations from the mean of young adults) of -2.7. When compared to the previous study of 04/29/2023 there has been no significant changes in bone density. BONE MINERAL DENSITY OF THE FOREARM Bone Mineral density (BMD) of the left proximal 1/3 of the radius measures 0.430 gm/cm2. This corresponds to a T-score (standard deviations from the mean of young adults) of -4.4. When compared to the previous study of 04/29/2023 there has been no significant changes in bone density. A forearm bone density study was performed in addition to the routine study due to the need to provide a comparison to the previous exam. SUMMARY: Bone mineral density shows evidence of osteoporosis and marked increase risk of fracture. There has been no significant changes in bone density since previous measurement. The lumbar spine Trabecular Bone Score is 1.299 which suggests partially degraded bone microarchitecture compared to the general population. Final decisions regarding diagnostic or therapeutic recommendations should include BMD, TBS, additional clinical risk factors as well the clinical context of the patient. Please see attached TBS results for further details. ADDITIONAL COMMENTS: Postmenopausal Women and Men Over 50: Diagnostic criteria: Osteoporosis: BMD at or below -2.5 T-score; Osteopenia (low bone mass): BMD between -1.0 and -2.5 T-score. If the patient has a history of a fragility fracture, a fracture that occurred with trauma equivalent to a fall from a standing position or less, then the diagnosis is osteoporosis regardless of bone density. The history and data sections of the bone mineral density scan were prepared by Arielle Sebastian(Jordan)(Niall)(BD) CBDT who is accredited by the International Society of Clinical Densitometry. The overall patient assessment and scan interpretation were performed by Selwyn Do M.D. who is certified by the International Society of Clinical Densitometry. [id number] us Selwyn Do MD IM DXA PROCEDURES Final Result * Diagnostic Mammogram Bilateral W Danelle (12/29/2023 2:16 PM BIRTH CERTIFICATE CLERK) Anatomical Region Laterality Modality Breast Bilateral Mammography 12/29/2023 2:35 PM BIRTH CERTIFICATE CLERK Impressions 12/29/2023 2:43 PM BIRTH CERTIFICATE CLERK 1. Previously questioned findings on screening mammogram reflected superimposition of normal breast tissue. 2. RIGHT breast conservation therapy changes. OVERALL FINAL ASSESSMENT: BI-RADS Category 2: Benign. RECOMMENDATION: Annual screening mammography is recommended. Dr. Lazo discussed the above findings and recommendations with the patient, who expressed her understanding of the management plan. The radiology attending physician has personally reviewed this study, and had reviewed and/or edited this written report and agrees with it. Electronically signed by: Marina Best M.D. Narrative 12/29/2023 2:43 PM BIRTH CERTIFICATE CLERK EXAMINATION: BILATERAL DIGITAL DIAGNOSTIC MAMMOGRAM INCLUDING CAD AND BILATERAL DIGITAL BREAST TOMOSYNTHESIS HISTORY: 73-year-old woman with history of right breast conservation therapy in 2016 who presents as a callback from screening for a right breast focal asymmetry and a left breast asymmetry. COMPARISON: Multiple prior studies which date back to 03/17/2015, the most recent on 12/10/2023 TECHNIQUE: Full field digital mammographic views of BOTH breasts were performed, including computer aided detection (CAD) and BILATERAL digital breast tomosynthesis (DBT). BREAST PARENCHYMAL COMPOSITION: The breasts are extremely dense, which lowers the sensitivity of mammography. MAMMOGRAM FINDINGS: Additional views of the RIGHT breast, including spot compression views, do not demonstrate persistent abnormality in location of questioned finding in the right upper outer breast. There are stable RIGHT breast conservation therapy changes. There is no significant change from prior examinations in 2020. Additional views of the LEFT breast, including spot compression views, do not demonstrate persistent abnormality in location of questioned asymmetry in the left central breast. Procedure Note Marina Best MD - 12/29/2023 EXAMINATION: BILATERAL DIGITAL DIAGNOSTIC MAMMOGRAM INCLUDING CAD AND BILATERAL DIGITAL BREAST TOMOSYNTHESIS HISTORY: 73-year-old woman with history of right breast conservation therapy in 2016 who presents as a callback from screening for a right breast focal asymmetry and a left breast asymmetry. COMPARISON: Multiple prior studies which date back to 03/17/2015, the most recent on 12/10/2023 TECHNIQUE: Full field digital mammographic views of BOTH breasts were performed, including computer aided detection (CAD) and BILATERAL digital breast tomosynthesis (DBT). BREAST PARENCHYMAL COMPOSITION: The breasts are extremely dense, which lowers the sensitivity of mammography. MAMMOGRAM FINDINGS: Additional views of the RIGHT breast, including spot compression views, do not demonstrate persistent abnormality in location of questioned finding in the right upper outer breast. There are stable RIGHT breast conservation therapy changes. There is no significant change from prior examinations in 2020. Additional views of the LEFT breast, including spot compression views, do not demonstrate persistent abnormality in location of questioned asymmetry in the left central breast. IMPRESSION: 1. Previously questioned findings on screening mammogram reflected superimposition of normal breast tissue. 2. RIGHT breast conservation therapy changes. OVERALL FINAL ASSESSMENT: BI-RADS Category 2: Benign. RECOMMENDATION: Annual screening mammography is recommended. Dr. Lazo discussed the above findings and recommendations with the patient, who expressed her understanding of the management plan. The radiology attending physician has personally reviewed this study, and had reviewed and/or edited this written report and agrees with it. Electronically signed by: Marina Best M.D. Frances Chamberlain COFFEE MACHINE TECHNICIAN IMG MAMMO PROCEDURES Final Resu lt from Last 3 Months or Most Recently Relevant to Health Maintenance Insurance MEDICARE ADVANTAGE [place] [address] A[employer] MEDICARE AETNA MEDICARE Care Teams Bobtail Driver Relationship Specialty Start Date End Date Micah Fournier MD PCP - General 07/17/17 Zoran Haile MD [address] [facility] [address] [place] [address] Radiation Oncologist Radiation Oncology 09/21/18 Ivan Johnson MD [address] [facility] [address] [place] [address] Surgeon Surgical Oncology 09/21/18 Nancy Hernandez, PhD [address] [facility] [address] [place] [address] Nurse Practitioner Radiation Oncology 09/21/18 Frances Chamberlain NP [address] [facility] [address] [place] [address] Nurse Practitioner Medical Oncology 09/21/18
--- OUTSIDE RECORDS SUMMARY | 2024-07-13 13:43 | XMS_ITS | Encounter Summary ---
Author Organization [facility] Address [address] [place] [address] Phone Care Team Providers Care Automobiles Salesperson Name Role Phone Unknown, Notinfile Primary Care Provider Unavail able Micah Fournier MD Primary Care Provider [phone] Zoran Haile MD Unavailable Ivan Johnson MD Unavailable [phone] ROLLER ENGINEER Unavailable [phone] Nancy Hernandez PhD Unavailable [phone] Frances Chamberlain BIOGEOGRAPHER Unavailable [phone] Encounter Details Date Type Department Care Team (Late st Contact Info) Description 07/10/2017 Orders Only [facility] ProviderIsaías MD [address] [place] [address] Social History Tobacco Use Types Packs/Day Years Used Date Smoking Tobacco: Never Assessed Comments Unknown Sex and Gender Information Value Date Recorded Sex Assigned at Not on file Legal Sex Female 2:57 AM LAN SPECIALIST Gender Identity Female 08/14/2020 2:05 PM CDT Sexual Orientation Straight 09/23/2018 1: 33 PM CDT documented as of this encounter Plan of Treatment Not on file documented as of this encounter Procedures Procedure Name Priority Date/Time Associated Diagnosis Comments DISCHARGE LABORATORY CUMULATIVE REPORT 07/10/2017 12:00 AM CDT documented in this encounter Results * DISCHARGE LABORATORY CUMULATIVE REPORT (07/10/2017 12:00 AM CDT) Narrative 07/10/2017 12:00 AM CDT Ordered by an unspecified provider. us Historical Provider LAB BLOOD ORDERABLES Machelle l Result documented in this encounter Visit Diagnoses Not on filedocumented in this encounter Care Teams Automobiles Salesperson Relationship Specialty Start Date End Date Unknown, Notinfile PCP - General 04/11/17 07/16/17 Micah Fournier MD PCP - General 07/17/17 Zoran Haile MD [address] [place] [address] Radiation Oncologist Radiation Oncology 09/21/18 Ivan Johnson MD [address] [place] [address] Surgeon Surgical Oncology 09/21/18 Yeni Og, STREET ROLLER ENGINEER [address] [place] [address] Nurse Practitioner Certified Clinical Nurse Specialist 09/21/18 03/14/21 Nancy Hernandez, PhD [address] [place] [address] Nurse Practitioner Radiation Oncology 09/21/18 Frances Chamberlain BIOGEOGRAPHER [address] [place] [address] Nurse Practitioner Medical Oncology 09/21/18 documented as of this encounter
--- OUTSIDE RECORDS SUMMARY | 2024-07-13 13:43 | XMS_ITS | Encounter Summary ---
Author Organization [facility] Address [address] [place] [address] Phone Care Team Providers Care Licensed Pharmacist Name Role Phone Micah Fournier MD Primary Care Provider [phone] Miscellaneous, Not In File Primary Care Provider Unavailable Micah Fourneir MD Primary Care Provider [phone] Miscellaneous, Not In File Primary Care Provider Unavailable Unknown, Notinfile Primary Care Provider Unavail able Unknown, Notinfile Primary Care Provider Unavail able Micah Fournier MD Primary Care Provider [phone] Unknown, Notinfile Primary Care Provider Unavail able Micah Fournier MD Primary Care Provider [phone] Unknown, Notinfile Primary Care Provider Unavail able Micah Fournier MD Primary Care Provider + [phone] Zoran Haile MD Unavailable Ivan Johnson MD Unavailable [phone] Yeni Og SYNTHETIC GEM PRESS OPERATOR Unavailable [phone] Nancy Hernandez PhD Unavailable [phone] Frances Chamberlain SURGICAL SERVICES COORDINATOR Unavailable [phone] Encounter Details Date Type Department Care Team (Latest Contact Info) Description 08/01/2015 Orders Only [facility] Scanning, Provider Social History Tobacco Use Types Packs/Day Years Used Date Smoking Tobacco: Never Assessed Comments Unknown Sex and Gender Information Value Date Recorded Sex Assigned at Not on file 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 Gender Identity Female 08/14/2020 2:05 PM CDT Sexual Orientation Straight 09/23/2018 1: 33 PM CDT documented as of this encounter Plan of Treatment Not on file documented as of this encounter Procedures Procedure Name Priority Date/Time Associated Diagnosis Comments SCAN - PATHOLOGY 08/01/2015 documented in this encounter Results * SCAN - PATHOLOGY (08/01/2015) us Provider Scanning Final Result documented in this encounter Visit Diagnoses Not on filedocumented in this encounter Care Teams Licensed Pharmacist Relationship Specialty Start Date End Date Micah Fournier MD PCP - General 06/13/16 06/18/16 Miscellaneous, Not In File PCP - General 06/19/16 06/19/16 Micah Fournier MD PCP - General 06/20/16 06/20/16 Miscellaneous, Not In File PCP - General 06/21/16 09/18/16 Unknown, Notinfile PCP - General 09/19/16 01/13/17 Unknown, Notinfile PCP - General 01/14/17 01/20/17 Micah Fournier MD PCP - General 01/21/17 01/21/17 Unknown, Notinfile PCP - General 01/22/17 04/09/17 Micah Fournier MD PCP - General 04/10/17 04/10/17 Unknown, Notinfile PCP - General 04/11/17 07/16/17 Micah Fournier MD PCP - General 07/17/17 Zoran Haile MD [address] [place] [address] Radiation Oncologist Radiation Oncology 09/21/18 Ivan Johnson MD [address] [facility] [address] [place] [address] Surgeon Surgical Oncology 09/21/18 Yeni Og, ROSE MARY [address] [place] [address] Nurse Practitioner Certified Clinical Nurse Specialist 09/21/18 03/14/21 Nancy Hernandez, PhD [address] [place] [address] Nurse Practitioner Radiation Oncology 09/21/18 Frances Chamberlain, SURGICAL SERVICES COORDINATOR [address] [facility] [address] [place] [address] Nurse Practitioner Medical Oncology 09/21/18 documented as of this encounter
--- OUTSIDE RECORDS SUMMARY | 2024-07-13 13:43 | XMS_ITS | Clinical Summary ---
Author Organization [facility] Address [address] [place] [address] Care Team Providers Care Yarn Polishing Machine Operator Name Role Phone Micah Fournier MD Primary Care Provider [phone] Zoran Haile MD Unavailable Ivan Johnson MD Unavailable [phone] Nancy Hernandez PhD Unavailable [phone] Frances Chamberlain COMPUTER TESTER Unavailable [phone] Allergies Active Allergy Reactions Criticality Noted Date [...] Myalgia 11/10/2023 Coronary artery disease invo lving iliamna coronary artery of iliamna heart without angina pectoris 08/07/2023 Dizziness 08/07/2023 [...] from 03/30/2015:Stage IB(cT2, cN0, cM0, G1, ER+, GA+, HER2-) - Signed by Nancy Hernandez, PhD on 09/21/2018 Pathologic stage from 08/01/2015:No Stage Recommended(ypT2, pN0(sn), cM0, G1, ER+, GA+, HER2-) - Signed by Nancy Hernandez, PhD on 09/21/2018 Resolved Problems Problem Noted Date Diagnosed Date Resolved Date Encounter for follow-up formerly [facility] of breast cancer 05/14/2018 09/10/2019 Encounters Date Type Department Care Team Description 05/24/2024 Orders Only [facility] [address] [facility] Advanced [facility] 5th [place] [address] [place] [phone] Kaushik Lewis NP Age-related osteoporosis without current pathological fracture (Primary Dx); Elevated alkaline phosphatase level 05/17/2024 Results Follow-Up [facility] [address] [facility] [address] [place] [phone] Selwyn Do MD Vitamin D 25 hydroxy, PTH, Comprehensive metabolic panel 05/10/2024 11:30 AM CDT Office Visit [facility] [address] [place] [phone] Samantha Lang MD Coronary artery disease involving iliamna coronary artery of iliamna heart without angina pectoris (Primary Dx); Dyslipidemia; Myalgia 05/04/2024 4:25 PM CDT Lab [facility] Endocrinology Metabolism and Lipid [address] [facility] 5[address] [place] [address] [place] [address] Age-related osteoporosis without current pathological fracture 05/04/2024 2:40 PM CDT Office Visit [facility] [address] [facility] 5th [place] [address] [place] [phone] Selwyn Do MD Age-related osteoporosis without current pathological fracture (Primary Dx) 05/04/2024 2:10 PM CDT Clinical Support [facility] [address] [facility] 5th [place] [address] [place] [phone] Age-related osteoporosis without current pathological fracture (Primary Dx) 05/04/2024 Telephone [facility] [address] [facility] [address] [place] [phone] Selwyn Do MD from Last 3 Months Immunizations Immunization Administration Dates Next Due Influenza, Quadrivalent, Hig h Dose, Preservative Free, Intrr 12/08/2019,11/30/2019 Influenza, Trivalent, High D ose, Split, Preservative Free, Intramuscular 11/20/2018,12/31/2017 Influenza, Unspecified 01/28/2003,01/20/2001 Pfizer SARS-CoV-2 Monovalent Vaccination (12+ Yrs) PURPLE 05/11/2020,04/20/2020 Pneumococcal Polysaccharide PPV23 02/22/2019 Surgical History Surgery Date Site/Laterality Comments US UNLISTED PROCEDURE LYMPH SYSTEM 08/01/2015 N/A Medical History Medical History Date Comments Breast cancer (HCC) Family History Medical History Relation Name Comments Heart attack Brother 1 Obesity Brother 1 Cirrhosis Father WWII medic Heart disease Maternal Grandfather Asthma Maternal Grandmother possible colon cancer Maternal cousin 1st Heart attack Mother Hip fracture Mother Osteoporosis Mother Stroke Mother Colon cancer Mother's Brother Breast cancer Mother's Sister 1 Brain tumor Mother's Sister 2 Unknown Family History Paternal Grandmother Anxiety disorder Son 1 healthy Son 2 Relation Name Status Comments Brother 1 Brother 2 Alive Father Maternal Grandfather Maternal Grandmother Maternal cousin 1st Alive Mother Mother's Brother Mother's Sister 1 2nd sister brain cancer Mother's Sister 2 Paternal Grandmother Son 1 Alive Son 2 Alive Social History Tobacco Use Types Packs/Day Years [...] on file 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 Gender Identity Female 08/14/2020 2:05 PM CDT Sexual Orientation Straight 09/23/2018 1: 33 PM CDT Obstetrics History Last Filed Vital Signs Vital Sign Reading [...] 05/10/2024 11:25 AM CDT Plan of Treatment Health Maintenance Due Date Last Done Comments Colon Cancer Screening-Colonoscopy 1950 Depression Screening 1950 Fall Risk Assessment 1950 Hepatitis C Screening 1950 DTaP/Tdap/Td Vaccine (1 - Tdap) 1960 Hepatitis B Screening 12/17/1967 Zoster Vaccine (1 of 2) 12/17/1999 Well Visit 65+ 2014 Pneumococcal vaccine 65+ (2 of 2 - PCV) 02/23/2020 02/22/2019 Covid-19 Vaccine (3 - 2023-2 5 season) 2023 05/11/2020, 04/20/2020 Influenza Vaccine (Season Ended) 2024 12/08/2019, 11/30/2019, 11/20/2018, Additional history exists Breast Cancer Screening-Mammogram 12/28/2024 12/29/2023, 12/10/2023, 12/04/2022, Additional history exists Osteoporosis Screening-Bone Density Scan 05/04/2026 05/04/2024, 04/29/2023, 04/25/2022, Additional history exists Procedures Procedure Name Priority Date/Time Associated Diagnosis Comments POCT LIPID PANEL Routine 05/10/2024 11:2 0 AM CDT Coronary artery disease involving iliamna coronary artery of iliamna heart without angina pectoris Dyslipidemia COMPREHENSIVE METABOLIC [...] current pathological fracture DIAGNOSTIC MAMMOGRAM BILATERAL W MANUEL Schedule Routine, Read Routine (OP Routine) 12/29/2023 2:16 PM SHIFT COMMANDER Malignant neoplasm of upper-outer quadrant of right breast in female, estrogen receptor positive (HCC) Abnormal mammogram of both breasts from Last 3 Months or Most Recently Relevant to Health Maintenance Results * POCT lipid panel (05/10/2024 11:20 AM CDT) Pathologist [facility] HDL, POC 92 mg/dL Triglycerides, POC 158 mg/dL LDL Cholesterol POC 67 mg/dL Chol/HDL Ratio, POC 0.7 Non-HDL Cholesterol, POC 98 mg/dL Cholesterol Total, POC 190 mg/dL Capillary blood 05/10/2024 1 1:20 AM CDT Samantha Lang MD POINT OF CARE TEST O RDERABLES Final Result * Vitamin D 25 hydroxy (05/04/2024 4:04 PM CDT) [facility] Vitamin D 31.5 20.0 - 100.0 ng/mL [facility] Comment: VITAMIN D DEFICIENCY = LESS THAN or EQUAL TO 20 ng/mL VITAMIN D INSUFFICIENCY = 21 - 29 ng/mL VITAMIN D SUFFICIENT = 30-100 ng/mL Blood 05/04/2024 4:04 PM CDT 05/04/2024 4:19 PM CDT Selwyn Do MD LAB BLOOD ORDERABLES Final Resu lt Performing Organization Address [facility] Co de Phone Number [facility] * (ABNORMAL) PTH (05/04/2024 4:04 PM CDT) [facility] Parathyroid Hormone 75.7(H) 15.0 - 65.0 pg/mL [facility] Blood 05/04/2024 4:04 PM CDT 05/04/2024 4:19 PM CDT Selwyn Do MD LAB BLOOD ORDERABLES Final Resu lt [facility] * (ABNORMAL) Comprehensive metabolic panel (05/04/2024 4:04 PM CDT) [facility] Total Protein 6.7 6.1 - 8.4 g/dL [...] IM CORE [facility] * Dexa TBS Axial Skeleton Bone Density 1 or more sites (05/04/2024 2:28 PM CDT) Anatomical Region Laterality Modality Wrist, Body N/A Radiographic Cherry ging Narrative 05/06/2024 12:19 PM CDT Patient Name: Laureen Breen Date of : 1950 Date of scan: 05/04/2024 Bone mineral density was performed on a HoloWavesat Discovery Densitometer. Based on machine cross-calibration and [...] by the International Society of Clinical Densitometry. [id number] us Selwyn Do MD IMG DXA PROCEDURES Final Result * Diagnostic Mammogram Bilateral W Manuel (12/29/2023 2:16 PM SHIFT COMMANDER) Anatomical Region Laterality Modality Breast Bilateral Mammography 12/29/2023 2:35 PM SHIFT COMMANDER Impressions 12/29/2023 2:43 PM SHIFT COMMANDER 1. Previously questioned findings on screening mammogram [...] Marina Best M.D. Narrative 12/29/2023 2:43 PM SHIFT COMMANDER EXAMINATION: BILATERAL DIGITAL DIAGNOSTIC MAMMOGRAM INCLUDING CAD AND BILATERAL DIGITAL BREAST TOMOSYNTHESIS HISTORY: 73-year-old woman with history of right breast conservation therapy in 2015 who presents as a callback from screening [...] history of right breast conservation therapy in 2015 who presents as a callback from screening [...] signed by: Marina Best M.D. Frances Chamberlain COMPUTER TESTER IMG MAMMO PROCEDURES Final Resu lt from Last 3 Months or Most Recently Relevant to Health Maintenance Insurance MEDICARE ADVANTAGE [facility] MEDIC[facility] Address: [place] [address] MEDICARE ADVANTAGE [facility]IC[facility] Address[place] [address] [facility] [address] MEDICARE T MEDICARE Care Teams Yarn Polishing Machine Operator Relationship Specialty Start Date End Date Micah Fournier MD PCP - General 07/17/17 Zoran Haile MD [address] [place] [id number] [place] [address] Radiation Oncologist Radiation Oncology 09/21/18 Ivan Johnson MD [address] [facility] [address] [place] [address] Surgeon Surgical Oncology 09/21/18 Nancy Hernandez, PhD [address] [facility] [address] [place] [address] Nurse Practitioner Radiation Oncology 09/21/18 Frances Chamberlain COMPUTER TESTER [address] [facility] [address] [place] [address] Nurse Practitioner Medical Oncology 09/21/18
== END 2024-07-13 13:39 | disposition home or self-care (01) ==
LOC: ANHGOSHLAB 13:39
PROVIDERS: PCP Family Medicine; Visit Provider Nurse Practitioner Family
DX: R30.0 Dysuria (principal)
CPT/HCPCS: 87086